=== PATIENT | female | born 1960 | race Caucasian/White ===

== ENCOUNTER 2023-07-15 12:38 | Emergency (ER) | payer OTHER, SELFPAY ==
[2023-07-15 12:46] VITALS: BP 126/81
[2023-07-15 13:06] LABS: % Basophils 0.2 % (0-2); % Eosinophils 0.7 % (0-6); % Immature Granulocytes 0.3 % (0-0.5); % Lymphocytes 19.9 % (20.5-51.1); % Monocytes 6.4 % (1.7-9.3); % Neutrophils 72.5 % (42.2-75.2); Absolute Lymphocytes 1.2 10^3/uL (1.2-3.4); Absolute Monocytes 0.4 10^3/uL (0.1-0.6); Absolute Neutrophils 4.2 10^3/uL (1.4-6.5); Hematocrit 38.1 % (37.0-47.0); Hemoglobin 12.7 g/dL (12.0-16.0); Mean Corp Hgb Conc. 33.3 g/dL (33.0-37.0); Mean Corpuscular Hgb 31.2 pg (27.0-31.0); Mean Corpuscular Volume 93.6 fL (81.0-99.0); Mean Platelet Volume 10.7 fL (7.4-10.4); Nucleated Red Blood Cells % 0 %; Platelet Count 195 10^3/uL (130-400); Red Blood Cell Count 4.07 10^6/uL (4.20-5.40); Red Cell Dist. Width 11.5 % (11.5-14.5); White Blood Cell Count 5.8 10^3/uL (4.8-10.8)
[2023-07-15 13:20] LABS: ALT (SGPT) 24 U/L (0-35); AST (SGOT) 32 U/L (14-36); Albumin 4.6 g/dl (3.5-5.0); Alkaline Phosphatase 84 U/L (38-126); Blood Urea Nitrogen 21 mg/dl (7-17); Calcium 9.9 mg/dl (8.4-10.2); Carbon Dioxide 31 mmol/L (22-30); Chloride 102 mmol/L (98-107); Glucose 107 mg/dl (70-99); Potassium 4.6 mmol/L (3.5-5.1); Sodium 136 mmol/L (135-145); Total Bilirubin 0.6 mg/dl (0.2-1.3); Total Protein 7.6 g/dl (6.3-8.2); eGFR > 60.00
[2023-07-15 13:31] LABS: Troponin I < 0.012 ng/ml
[2023-07-15 13:59] VITALS: BMI 31.9
--- NOTE | 2023-07-15 14:23 | ED.GENMED ---
History of Present Illness
General
Chief Complaint: Chest Pain
Time Seen by Provider: 07/15/23 14:04
Travel History
Have you had any contact with someone who has COVID-19?: No
Do you have any symptoms of coronavirus? Fever > 100 degrees, chills, cough, shortness of breath, sore throat, loss of taste or smell, muscle aches, or headache?: No
History of Present Illness
History of Present Illness:
63-year-old female presents to the emergency department for evaluation of recurrent anxiety. She is was seen this emergency department [facility] times over the past month for similar symptoms. She reports chest pain and shortness of breath which is
similar to her past episodes of anxiety. She is not able to sleep last night. She notes that her psychiatrist has been adjusting medications frequently over the past several months, however had discontinued her clonazepam recently and she feels
this is necessary to take. She is quite hopeful that we will give her clonazepam today. Denies any suicidal or homicidal ideation
Past History
Past History
ED Past Medical History: HTN, Psychiatric (Anxiety, ADHD) and Other (Anxiety panic disorder ); Negative Arrthythmia, CAD or Fibromyalgia
ED Past Surgical History: Appendectomy, Cholecystectomy and
Social History
Tobacco: Non-smoker
Alcohol: Occasional
Drug: None
Personal:
Living: with family
Employment: Employed
Family History
Family History: Other (Nonsig.)
Review of Systems
Review of Systems
Allergies reviewed?: Yes
All Other Systems: ROS reviewed and negative except as documented in HPI and ROS
Phy Exam
Physical Exam
Physical Exam:
GEN: Well appearing, NAD, WDWN
HEENT: Oral mucosa moist, no scleral icterus
Cardiac: Regular rate
Lung: No respiratory distress, no tachypnea
MSK: No gross deformity or injuries
Skin: Good color, no pallor or jaundice, no rashes
Neuro: AO x3, moves all extremities freely
Psych: Tearful and anxious but cooperative
Scores
Heart Score for Chest Pain Patients
STEMI patient?: No
History: Slightly or Non-Suspicious
ECG: Normal
Age: >45 - <65 years
Risk Factors: 1 or 2 Risk Factors
Troponin: </= Normal Limit
Heart Score for Chest Pain Patients: 2
Heart Score Risk: 2.5% MACE over next 6 weeks
Course
Orders/Labs/Results
Orders:
Orders
07/15/23 12:48
Electrocardiogram (*1) Urgent
Reason for Study: Chest Pain
EKG- Treatment ONCE
07/15/23 12:57
Complete Blood Count/With Diff Urgent
Comprehensive Metabolic Panel Urgent
Troponin I Urgent
07/15/23 14:18
HydrOXYzine [Vistaril] 50 mg IM NOW STA
Abnormal Lab Results
07/15/23
12:57
RBC 4.07 L 10^6/uL
(4.20-5.40)
MCH 31.2 H pg
(27.0-31.0)
MPV 10.7 H fL
(7.4-10.4)
Lymphocytes % 19.9 L %
(20.5-51.1)
Carbon Dioxide 31 H mmol/L
(22-30)
BUN 21 H mg/dl
(7-17)
Glucose 107 H mg/dl
(70-99)
07/15/23 12:57
07/15/23 12:57
Vital Signs
Initial and Last Documented VS:
Initial Vital Signs
Temp Pulse Resp BP Pulse Ox
98.1 F 63 18 126/81 97
07/15/23 12:46 07/15/23 12:46 07/15/23 12:46 07/15/23 12:46 07/15/23 12:46
Last Documented Vital Signs
Temp Pulse Resp BP Pulse Ox
98.5 F 86 16 136/71 99
07/15/23 15:08 07/15/23 15:08 07/15/23 15:08 07/15/23 15:08 07/15/23 15:08
MDM/Problems Addressed
MDM/Problems Addressed:
Patient's anxiety symptoms dramatically improved after IM hydroxyzine, will provide this for short-term relief, encourage close follow-up with psychiatry
Comment
Comment:
EKG independently interpreted by me shows normal sinus rhythm at a rate of 61, no ST changes concerning for ischemia, QTc of 416.
*Critical Care Note
Total Time (30-74mins, 75-104mins- exclusive of procedures): Not Applicable
ED Attending Note
-
Portions of this chart may have been created with voice recognition software.� Occasional wrong word or��sound alike� substitutions may have occurred due to the inherent limitations of voice recognition software.
Discharge Plan
Departure
Patient Disposition: Home (Routine Discharge)
Date of Disposition: 07/15/23
Time of Disposition: 15:02
Patient with high blood pressure during this ER visit?: No
Discharge Problem:
Anxiety
Instructions: Anxiety, Adult (DC)
Prescriptions:
New
hydroxyzine HCl 25 mg tablet
25 - 50 mg PO TID PRN (Reason: anxiety) Qty: 20 0RF
No Action
clonidine HCl 0.1 mg Tablet
0.05 mg PO DAILY PRN (Reason: anxiety)
gabapentin 100 mg Capsule
100 mg PO BID
sertraline 50 mg Tablet
50 mg PO DAILY
Referrals:
Ashley Millan DO [Family Provider] -
Interventions
Interventions:
*Risk Screen - Suicide Last Done: 07/15/23 12:46
*General Assessment Last Done: 07/15/23 13:59
*Neglect/Abuse Screening Last Done: 07/15/23 12:46
ED- Fall Risk Assessment Last Done: 07/15/23 13:59
*ED COVID-19 Vaccine History Last Done: 07/15/23 12:46
*Nursing Disposition Last Done: 07/15/23 15:08
ED- Cardiac Assessment Last Done: 07/15/23 13:59
Discharge Date and Time
Discharge Date/Time: 07/15/23 15:09
[2023-07-15] MEDS: VISTARIL 50 MG IM (14:31)
[2023-07-15 15:08] VITALS: BP 136/71
== END 2023-07-15 15:09 | disposition home or self-care (01) ==
LOC: EMR 12:38
PROVIDERS: Emergency Medicine; EMERGENCY PHYSICIAN Emergency Medicine; FAMILY PHYSICIAN Internal Medicine
DX: F41.9 Anxiety disorder, unspecified (principal)
CPT/HCPCS: 99284; 96372; 80053; 84484; 85025; 93005

== ENCOUNTER 2023-08-18 20:52 | Emergency (ER) | payer OTHER, SELFPAY ==
[2023-08-18 20:58] VITALS: BP 119/84
--- NOTE | 2023-08-18 22:35 | ED.GENMED ---
History of Present Illness
General
Chief Complaint: Prescription Refill
Source: patient
Exam Limitations: none
Time Seen by Provider: 08/18/23 22:28
Nursing documentation reviewed up to this point in time: agreed with
Travel History
Have you had any contact with someone who has COVID-19?: No
Do you have any symptoms of coronavirus? Fever > 100 degrees, chills, cough, shortness of breath, sore throat, loss of taste or smell, muscle aches, or headache?: No
History of Present Illness
History of Present Illness:
Pleasant 63-year-old female who presents for prescription refill. She states that she has severe anxiety and is seen by her psychiatrist. She normally takes mirtazapine, but states when she went to the pharmacy, the pharmacist stated that she did
not have a prescription. She has been unable to sleep. Pharmacy printed out a prescription list which states that she had the mirtazapine filled on 08/14/2023. Patient insists that the prescription is un filled due to lack of prescription.
Patient denies anxiety at this point. Denies suicidal homicidal ideation, intent, or plan.
Past History
Past History
ED Past Medical History: HTN, Psychiatric (Anxiety, ADHD) and Other (Anxiety panic disorder ); Negative Arrthythmia, CAD or Fibromyalgia
ED Past Surgical History: Appendectomy, Cholecystectomy and
Social History
Tobacco: Non-smoker
Alcohol: Occasional
Drug: None
Personal:
Living: with family
Employment: Employed
Family History
Family History: Other (Nonsig.)
Review of Systems
Review of Systems
Allergies reviewed?: Yes
All Other Systems: ROS reviewed and negative except as documented in HPI and ROS
Constitutional: Reports no symptoms
EENT: Reports no symptoms
Respiratory: Reports no symptoms
Cardiac: Reports no symptoms
ABD/GI: Reports no symptoms
: Reports no symptoms
Musculoskeletal: Reports no symptoms
Skin: Reports no symptoms
Neurological: Reports no symptoms
Endocrine: Reports no symptoms
Hematologic/Lymphatic: Reports no symptoms
Psychiatric: Reports no symptoms
Phy Exam
General Physical Exam
General Presentation: well appearing
General age: appears stated age
General Skin: warm
General Hydration: appears well hydrated
Cardiovascular Exam
Cardiovascular Exam: regular rate/rhythm
Pulmonary Exam
Pulmonary Exam: lungs clear and no respiratory distress
Neurological Exam
Neurological Exam: alert and oriented x3
Skin Exam
Skin Exam: normal color and warm/dry
Psychiatric Exam
Psychiatric Exam: normal mood/affect and anxious
Course
Vital Signs
Initial and Last Documented VS:
Initial Vital Signs
Temp Pulse Resp BP Pulse Ox
97.9 F 70 18 119/84 98
08/18/23 20:58 08/18/23 20:58 08/18/23 20:58 08/18/23 20:58 08/18/23 20:58
Last Documented Vital Signs
Temp Pulse Resp BP Pulse Ox
97.9 F 70 18 119/84 98
08/18/23 20:58 08/18/23 20:58 08/18/23 20:58 08/18/23 20:58 08/18/23 20:58
*Critical Care Note
Total Time (30-74mins, 75-104mins- exclusive of procedures): Not Applicable
Update Note
Update Note:
Patient states that she did not fill the mirtazapine due to lack of her prescription. I will provide her with 6-day supply she is due to see her psychiatrist on Thursday.
ED Attending Note
-
Portions of this chart may have been created with voice recognition software.� Occasional wrong word or��sound alike� substitutions may have occurred due to the inherent limitations of voice recognition software.
Discharge Plan
Departure
Patient Disposition: Home (Routine Discharge)
Date of Disposition: 08/18/23
Time of Disposition: 22:46
Patient with high blood pressure during this ER visit?: No
Condition: Good
Discharge Problem:
Prescription refill
Instructions: How to Read a Prescription Drug Label
Prescriptions:
New
mirtazapine 15 mg tablet
15 mg PO DAILY Qty: 6 0RF
No Action
clonidine HCl 0.1 mg Tablet
0.05 mg PO DAILY PRN (Reason: anxiety)
gabapentin 100 mg Capsule
100 mg PO BID
sertraline 50 mg Tablet
50 mg PO DAILY
hydroxyzine HCl 25 mg tablet
25 - 50 mg PO TID PRN (Reason: anxiety) Qty: 20 0RF
Referrals:
Ashley Millan DO [Family Provider] -
Activity Restrictions/Additional Instructions:
Please keep with your psychiatrist scheduled for this Thursday.
It was a pleasure meeting you and taking part in your care. We hope for your continued healing and wellness.
Please read discharge instructions in their entirety. However, they are for general education and may not describe your exact diagnosis at discharge. Information on your ER visit and medical conditions were discussed with you along with appropriate
follow up information...
If indicated, please take your medications as instructed and indicated on discharge paperwork.
Please schedule a follow up appointment as directed. Call to schedule an appointment
Please return to the emergency department with ANY change in, persisting, or worsening of symptoms. If any of your symptoms do not improve, or persist, or become more severe within 6-12 hours, please return to the emergency department for further
care.
Please return to the emergency department if you develop a headache, neck pain/stiffness, fever greater than 100.4F, chest pain, shortness of breath, persistent nausea, vomiting, slurred speech, difficulty walking, numbness/tingling, weakness, signs
of infection or any other symptoms that are worrisome to you.
If you have any questions or concerns please do not hesitate to call the Hospital at .
Interventions
Interventions:
*Risk Screen - Suicide Last Done: 08/18/23 21:57
*General Assessment Last Done: 08/18/23 20:58
*Neglect/Abuse Screening Last Done: 08/18/23 21:57
ED- Fall Risk Assessment Last Done: 08/18/23 20:58
*ED COVID-19 Vaccine History Last Done: 08/18/23 20:58
*Nursing Disposition Last Done: 08/18/23 23:01
Discharge Date and Time
Discharge Date/Time: 08/18/23 23:02
== END 2023-08-18 23:02 | disposition home or self-care (01) ==
LOC: EMR 20:52
PROVIDERS: EMERGENCY PHYSICIAN Student in an Organized Health Care Education/Training Program; FAMILY PHYSICIAN Internal Medicine
DX: Z76.0 Encounter for issue of repeat prescription (principal); F41.9 Anxiety disorder, unspecified
CPT/HCPCS: 99281

== ENCOUNTER → 2023-09-10 11:33 | Outpatient (REF) | payer OTHER, SELFPAY | LOC: HWWDC 11:33 | PROVIDERS: ATTENDING PHYSICIAN Internal Medicine | DX: Z12.31 Encounter for screening mammogram for malignant neoplasm of breast (principal) | CPT/HCPCS: 77063; 77067 ==

== ENCOUNTER → 2023-10-23 16:07 | Outpatient (REF) | payer OTHER, SELFPAY | LOC: HWRCS 16:07 | PROVIDERS: ATTENDING PHYSICIAN Internal Medicine | DX: E66.01 Morbid (severe) obesity due to excess calories (principal); Z68.36 Body mass index [BMI] 36.0-36.9, adult; R06.09 Other forms of dyspnea; R01.1 Cardiac murmur, unspecified | CPT/HCPCS: 93306 ==

== ENCOUNTER → 2024-04-25 12:56 | Outpatient (REF) | payer OTHER, SELFPAY | LOC: HWRAD 12:56 | PROVIDERS: ATTENDING PHYSICIAN Internal Medicine | DX: R06.02 Shortness of breath (principal) | CPT/HCPCS: 71046 ==

== ENCOUNTER 2024-09-30 13:31 | Inpatient (IN) | payer OTHER, SELFPAY ==
[2024-09-30] VITALS (31 sets, daily range): BP systolic 88–149; BP diastolic 71–105; BMI 31.8
[2024-09-30 11:12] LABS: % Basophils 0.3 % (0-2); % Eosinophils 0.5 % (0-6); % Immature Granulocytes 0.3 % (0-0.5); % Lymphocytes 13.3 % (20.5-51.1); % Monocytes 5.2 % (1.7-9.3); % Neutrophils 80.4 % (42.2-75.2); Absolute Eosinophils 0.1 10^3/uL (0-0.7); Absolute Lymphocytes 1.4 10^3/uL (1.2-3.4); Absolute Monocytes 0.6 10^3/uL (0.1-0.6); Absolute Neutrophils 8.6 10^3/uL (1.4-6.5); Hematocrit 42.7 % (37.0-47.0); Hemoglobin 14.4 g/dL (12.0-16.0); Mean Corp Hgb Conc. 33.7 g/dL (33.0-37.0); Mean Corpuscular Hgb 28.6 pg (27.0-31.0); Mean Corpuscular Volume 84.7 fL (81.0-99.0); Mean Platelet Volume 9.7 fL (7.4-10.4); Nucleated Red Blood Cells % 0 %; Platelet Count 186 10^3/uL (130-400); Red Blood Cell Count 5.04 10^6/uL (4.20-5.40); Red Cell Dist. Width 12.4 % (11.5-14.5); White Blood Cell Count 10.7 10^3/uL (4.8-10.8)
[2024-09-30 11:23] LABS: ALT (SGPT) 75 U/L (0-35); AST (SGOT) 87 U/L (14-36); Albumin 4.5 g/dl (3.5-5.0); Alkaline Phosphatase 104 U/L (38-126); Blood Urea Nitrogen 26 mg/dl (7-17); Calcium 9.7 mg/dl (8.4-10.2); Carbon Dioxide 26 mmol/L (22-30); Chloride 108 mmol/L (98-107); Glucose 134 mg/dl (70-99); Potassium 4.3 mmol/L (3.5-5.1); Sodium 142 mmol/L (135-145); Total Bilirubin 0.9 mg/dl (0.2-1.3); Total Protein 7.2 g/dl (6.3-8.2); eGFR > 60.00
--- NOTE | 2024-09-30 11:29 | ED.GENMED ---
History of Present Illness
General
Chief Complaint: Breathing Problem
Source: patient and records (Reviewed external records from urgent care)
Exam Limitations: none
Time Seen by Provider: 09/30/24 11:17
Nursing documentation reviewed up to this point in time: agreed with
History of Present Illness
History of Present Illness:
64-year-old female with history as noted presents to the ER from urgent care facility for evaluation of shortness of breath and hypoxia. Patient reports onset of symptoms this morning when she woke up and have been constant throughout the day. She
reports mild associated cough. Denies any significant URI symptoms otherwise such as sore throat or rhinorrhea. She denies any fevers or chills. She denies any chest pain. She denies any swelling or pain in the legs. She has not had any GI
symptoms. She says she has had similar symptoms in the past but cannot tell me exactly what from�chart review shows multiple previous visits for anxiety/panic. She denies any cardiac history. She denies any known lung disease but review of her
medication list shows that she is on standing nebulizer treatments suggesting some underlying lung disease. Per documentation from urgent care she was noted to be hypoxic at 81% there on room air and was sent to the ER for assessment. She denies
any prior oxygen requirement.
Past History
Past History
ED Past Medical History: HTN, Psychiatric (Anxiety, ADHD) and Other (Anxiety panic disorder ); Negative Arrthythmia, CAD or Fibromyalgia
ED Past Surgical History: Appendectomy, Cholecystectomy and
Social History
Tobacco: Non-smoker
Alcohol: Occasional
Drug: None
Personal:
Living: with family
Employment: Employed
Family History
Family History: Other (Nonsig.)
Review of Systems
Review of Systems
All Other Systems: ROS reviewed and negative except as documented in HPI and ROS
Constitutional: Denies fever or chills
Respiratory: Reports cough and trouble breathing
Cardiac: Denies chest pain or palpitations
ABD/GI: Denies abdominal pain, nausea, vomiting or diarrhea
: Denies flank pain
Musculoskeletal: Denies edema
Neurological: Denies dizzy or headache
Phy Exam
Physical Exam
Physical Exam:
General: Awake, alert, oriented x3; no acute distress
Head: Normocephalic, atraumatic
Eyes: Conjunctiva normal, EOMI
Throat: Airway intact, handling secretions
Neck: Trachea midline, no JVD
Lungs: Hypoxic requiring 4 L nasal cannula; respiratory rate 20-22; she is breathing comfortably does not appear to be in respiratory distress; lungs are clear to auscultation bilaterally, no wheezing, rales, rhonchi
Heart: Tachycardia with regular rhythm, systolic murmur noted
Abd: Soft, non distended, nontender
Neuro: No gross deficits
Extremities: No edema in extremities, equal pulses in all extremities
Scores
Heart Failure Risk
Heart Failure Risk Score: Not Applicable
Heart Score for Chest Pain Patients
STEMI patient?: Not applicable
Withdrawal Assessment of Alcohol
Withdrawal Assessment Completed?: Not applicable
Course
Orders/Labs/Results
Orders:
Orders
09/30/24 11:04
CR Chest - 2 Views Urgent
Comment:
Reason For Exam: SOB
09/30/24 11:05
Complete Blood Count/With Diff Urgent
Comprehensive Metabolic Panel Urgent
NT-proBNP Urgent
Troponin I Urgent
09/30/24 11:34
Electrocardiogram (*1) Urgent
Reason for Study: Shortness of Breath
EKG- Treatment ONCE
09/30/24 11:37
CT Chest PE Study Urgent
Comment:
Reason For Exam: sob, hypoxia
Abnormal Lab Results
09/30/24
11:05
Absolute Neuts (auto) 8.6 H 10^3/uL
(1.4-6.5)
Neutrophils % 80.4 H %
(42.2-75.2)
Lymphocytes % 13.3 L %
(20.5-51.1)
Chloride 108 H mmol/L
(98-107)
BUN 26 H mg/dl
(7-17)
Glucose 134 H mg/dl
(70-99)
AST 87 H U/L
(14-36)
ALT 75 H U/L
(0-35)
Troponin I 0.223 H* ng/ml
09/30/24 11:05
09/30/24 11:05
Vital Signs
Initial and Last Documented VS:
Initial Vital Signs
Temp Pulse Resp
36.8 C 110 20
09/30/24 11:00 09/30/24 11:00 09/30/24 11:00
Last Documented Vital Signs
Temp Pulse Resp BP Pulse Ox
36.8 C 101 25 132/96 99
09/30/24 11:00 09/30/24 12:00 09/30/24 11:45 09/30/24 12:00 09/30/24 12:00
MDM/Problems Addressed
Differential Diagnosis Includes:
Pneumonia, pneumothorax, bronchitis, PE, CHF
MDM/Problems Addressed:
64-year-old female presents for evaluation of shortness of breath and hypoxia she says symptoms started this morning and have been constant. She is on 4 L nasal cannula here to maintain saturations. She is tachycardic. Respiratory rate high side
of normal at roughly 20. Blood pressure marginally elevated. Afebrile. Physical exam is as noted�notably her lungs sound clear without focal wheezing or rales. Will plan to place an IV check labs including a CBC and a CMP, troponin, proBNP.
Will check chest x-ray and EKG. If chest x-ray nondiagnostic plan to proceed with CT chest to rule out PE. Will monitor closely reassess after the above.
Initial labs reviewed: CBC unremarkable, CMP shows marginally elevated transaminases unlikely of acute clinical significance. Her proBNP is marginal but troponin was significantly elevated at 0.223. Denies chest pain, no STEMI on EKG. Will need
to trend. Chest x-ray pending but suspect will need CT to rule out PE at this point.
Chest x-ray reviewed by me shows no acute disease. Patient sent directly for CT chest. Reviewed by me in real-time appears to show bilateral PE. Discussed with radiologist to expedite read.
CTA positive for bilateral PE with some signs of right heart strain. PERT alert activated. Initiated heparin infusion. Discussed case with pulmonology and interventional radiology. Plan for catheter directed lysis and ICU admission. Discussed
case with hospitalist for admission.
*EKG
Interpreted by ED Provider?: Yes
Heart Rate: 102
Rate: tachycardiac
Rhythm: sinus
[place]: normal axis
Interval: normal interval
QRS Pattern: normal QRS
Ischemia: non-specific ST changes
*Critical Care Note
Total Time (30-74mins, 75-104mins- exclusive of procedures): 34
comment:
Critical care statement: A total of 34 minutes of critical care time was provided for this patient. This includes management of unstable vital signs, evaluation of the patient at bedside, frequent reassessment, discussion with
consultants/hospitalist, and review of pertinent medical records. This time was separate from time utilized to perform any aforementioned documented procedures
Data Reviewed
Review of Other/Old Records Reveals: Labs and Records
Source: patient and records
Patient Management
Discussion with other providers: Hospitalist (Discussed with hospitalist), Internal Communications Manager (Discussed with hockey instructor, interventional radiologist) and Radiologist (Discussed with radiologist)
Escalation/DeEscalation of care consider admission/obs:
Admission indicated
ED Attending Note
-
Portions of this chart may have been created with voice recognition software.� Occasional wrong word or��sound alike� substitutions may have occurred due to the inherent limitations of voice recognition software.
Discharge Plan
Departure
Patient Disposition: Admit
Date of Disposition: 09/30/24
Time of Disposition: 12:23
Admit to doctor: G[facility]
Presentation/result/management discussed w/ accepting MD/DO: Hospitalist
Discharge Problem:
Acute hypoxic respiratory failure, Pulmonary embolism
Prescriptions:
No Action
clonidine HCl 0.1 mg Tablet
0.05 mg PO DAILY PRN (Reason: anxiety)
gabapentin 100 mg Capsule
100 mg PO BID
sertraline 50 mg Tablet
50 mg PO DAILY
hydroxyzine HCl 25 mg tablet
25 - 50 mg PO TID PRN (Reason: anxiety) Qty: 20 0RF
mirtazapine 15 mg tablet
15 mg PO DAILY Qty: 6 0RF
Referrals:
Ashley Millan DO [Family Provider] -
Interventions
Interventions:
*General Assessment Last Done: 09/30/24 11:00
ED- Cardiac Assessment Last Done: 09/30/24 11:05
ED- Pulmonary Assessment Last Done: 09/30/24 11:05
Discharge Date and Time
Print Language: ESTONIAN
[2024-09-30 11:37] LABS: NT-proBNP 252 pg/ml; Troponin I 0.223 ng/ml
--- NOTE | 2024-09-30 12:41 | HPS.HSE ---
Family Physician
-
Family Physician: Ashley Millan DO
Chief Complaint
-
Shortness of Breath
History of Present Illness
Patient is a 64 y/o female past medical history of COPD and anxiety / panic disorder who presents with shortness of breath. Patient reports she has been short of breath for several months, but today the shortness of breath was much worse than
usual. initially took patient to the urgent care who found her to hypoxic with O2 sat of 81% on RA and she was promptly brought to the emergency department for evaluation. Work-up in the emergency department revealed extensive bilateral
pulmonary emboli with evidence of right heart strain. Patient denies any chest pains or lower extremity edema. She denies any prior history of blood clot, recent travel or recent surgery.
Medical History
Past Medical History
Past Medical History: Reports Other
Additional Past Medical History:
COPD
Generalized Anxiety Disorder / Panic Disorder
Hyperlipidemia
Past Surgical History: Reports Other
Additional Past Surgical History:
Appendectomy
Cholecystectomy
Right Knee Replacement
Social History
Tobacco: Former Smoker (Quit about 30 years ago)
Alcohol: Daily (2 vodka cocktails nights)
Family History
Family History: Other (Patient denies any family history of blood clots)
Allergies / Home Medications
Allergies reflects when Allergies were last updated in [employer].
Home Medications with original date entered in [employer]
Allergy/Medication List:
Allergies
Allergy/AdvReac Type Severity Reaction Status Date / Time
erythromycin base Allergy Unknown Verified 09/30/24 11:00
[Erythromycin Base]
Home Medications
sertraline 50 mg tablet 50 mg PO QPM 07/15/23
albuterol sulfate 90 mcg/actuation aerosol inhaler 2 puff inhalation R Q4HPRN PRN sob/wheezing 09/30/24
budesonide-formoterol HFA 160 mcg-4.5 mcg/actuation aerosol inhaler (Symbicort) 1 inh inhalation R QPM 09/30/24
bupropion HCl 300 mg 24 hr tablet, extended release 300 mg PO QPM 09/30/24
clonazepam 0.5 mg tablet 0.5 mg PO TID 09/30/24
dextroamphetamine-amphetamine 10 mg tablet 10 mg PO BID 09/30/24
hydroxyzine HCl 25 mg tablet 25 - 50 mg PO TIDPRN PRN anxiety 09/30/24
ipratropium 0.5 mg-albuterol 3 mg (2.5 mg base)/3 mL nebulization soln 3 ml inhalation Q4HPRN PRN SOB/WHEEZING 09/30/24
rosuvastatin 5 mg tablet 5 mg PO QPM 09/30/24
trazodone 50 mg tablet 50 - 100 mg PO HS 09/30/24
Review of Systems
-
A 12 point ROS was completed and negative except as noted: Yes
Constitutional: Denies Fever or Chills
Respiratory: Reports Trouble Breathing; Denies Cough
Cardiac: Denies Chest Pain or Palpitations
Physical Exam
Vital Signs
Vital Signs
Temp Pulse Resp BP Pulse Ox
98.3 F 101 25 132/96 99
09/30/24 11:00 09/30/24 12:00 09/30/24 11:45 09/30/24 12:00 09/30/24 12:00
Physical Exam
General: Other (Appears pale and in slight distress)
HEENT: Anicteric and Oxygen (Nasal Cannula)
Respiratory: Clear and Other (Slightly tachypneic without use of accessory muscles)
Cardiac: S1/S2, Tachycardia (Slightly) and Murmur (II/ Systolic Murmur)
GI: Soft and Non Tender
Rectal: Deferred by Provider
Musculoskeletal: No Clubbing, No Cyanosis and No Edema
Skin: Warm and Dry
Neuro: Awake, Alert, Oriented and Nonfocal/grossly intact
Psych: Anxious (Slightly)
Laboratory Results
-
09/30/24 11:05
09/30/24 11:05
Laboratory Results
Total Bilirubin 0.9 mg/dl (0.2-1.3) 09/30/24 11:05
AST 87 U/L (14-36) H 09/30/24 11:05
ALT 75 U/L (0-35) H 09/30/24 11:05
Alkaline Phosphatase 104 U/L (38-126) 09/30/24 11:05
Troponin I 0.223 ng/ml H* 09/30/24 11:05
Data Reviewed
-
CT Scan: Report Reviewed by me
Lab Data: Labs Reviewed by me
Impression/Plan
-
Acute Hypoxic Respiratory Failure secondary Extensive Bilateral Pulmonary Emboli with Right Heart Strain
-PERT alert was called in the emergency department
-Current plan for catheter directed lysis in Interventional Radiology
-Admit to ICU post procedure
-Continue heparin infusion
-Check Echocardiogram
-Consult Pulmonary
Elevated Troponin, likely non-ischemic myocardial injury in setting of pulmonary embolism
-Consult Cardiology
-Trend troponin
COPD, no acute exacerbation
-Continue budesonide nebulizer until respiratory status improves and able to resume Symbicort
-Continue DuoNeb PRN
Generalized Anxiety Disorder / Panic Disorder
-Continue bupropion, clonazepam, sertraline and trazodone
Hyperlipidemia
-Continue Crestor
Code Status: Full Code
--- NOTE | 2024-09-30 12:56 | CON.INTV ---
Consultation
Consultation Request
Date/Time Consultation Requested: 09/30/2024 12:27
Date/Time Consultation Performed: 09/30/2024 12:40
Requesting Provider: Dr. Adrian Nuñez
Performing Provider: Dr. Mimi Gao, Dr. Mcdonald
Reason for Consultation: Acute Hypoxic Respiratory Failure secondary to Pulmonary Embolism
Medical History
-
Chief Complaint: Acute Hypoxic Respiratory Failure secondary to Pulmonary Embolism
History of Present Illness:
64 year old female with a past medical history of hypertension, depression, and anxiety with panic attacks comes to the [facility] from Urgent Care due to recent shortness of breath that began around 8:30 this morning. Patient had been having
trouble breathing for several months prior but this morning was feeling much worse. Her is at her bedside and says that patient's mental acuity has been decreasing for the past few months as she has continued to be short of breath. Patient
has become forgetful and is much altered than before as per her . Due to this increased shortness of breath, she went to the Urgent Care this morning where she was found to be very hypoxic. She was subsequently sent over to the ER for
assessment. In the ED, patient underwent CTA which was positive for bilateral PE with some signs of right heart strain. Patient was started on heparin infusion, and interventional radiology was consulted. Plan by IR is for catheter directed lysis of
the pulmonary embolism with subsequent ICU admission.
Past Medical History
Past Medical History: COPD (Unclear History), HTN, Hypercholesterolemia and Psychiatric (Anxiety and Depression)
Past Surgical History: Appendectomy, Cholecystectomy and
Social History
Tobacco: Former Smoker (30 years ago)
Alcohol: Daily (2 Drinks of Vodka plus others)
Drug: None
Personal:
Living: With Family
Family History
Family History: Reviewed & Not Pertinent
Allergies / Home Medications
Allergies
Allergy/AdvReac Type Severity Reaction Status Date / Time
erythromycin base Allergy Unknown Verified 09/30/24 11:00
[Erythromycin Base]
Home Medications
�Medication �Instructions �Recorded �Confirmed �Last Taken �Type
sertraline 50 mg tablet 50 mg PO QPM 07/15/23 09/30/24 Unknown History
albuterol sulfate 90 mcg/actuation 2 puff inhalation R Q4HPRN PRN 09/30/24 09/30/24 Unknown History
aerosol inhaler sob/wheezing
budesonide-formoterol HFA 160 1 inh inhalation R QPM 09/30/24 09/30/24 Unknown History
mcg-4.5 mcg/actuation aerosol
inhaler (Symbicort)
bupropion HCl 300 mg 24 hr tablet, 300 mg PO QPM 09/30/24 09/30/24 Unknown History
extended release
clonazepam 0.5 mg tablet 0.5 mg PO TID 09/30/24 09/30/24 09/30/24 History
dextroamphetamine-amphetamine 10 10 mg PO BID 09/30/24 09/30/24 Unknown History
mg tablet
hydroxyzine HCl 25 mg tablet 25 - 50 mg PO TIDPRN PRN anxiety 09/30/24 09/30/24 Unknown History
ipratropium 0.5 mg-albuterol 3 mg 3 ml inhalation Q4HPRN PRN 09/30/24 09/30/24 Unknown History
(2.5 mg base)/3 mL nebulization SOB/WHEEZING
soln
rosuvastatin 5 mg tablet 5 mg PO QPM 09/30/24 09/30/24 Unknown History
trazodone 50 mg tablet 50 - 100 mg PO HS 09/30/24 09/30/24 Unknown History
Review of Systems
-
History Source: Patient and Family
Constitutional: Fatigue
EENT: No Symptoms
Respiratory: Trouble Breathing
Cardiac: No Symptoms
Abdomen/GI: Constipated
: No Symptoms
Musculoskeletal: No Symptoms
Skin: No Symptoms
Neuro: No Symptoms
Endocrine: No Symptoms
Hematologic/Lymphatic: No Symptoms
Vitals / Labs / Diagnostic Testing
Vital Signs
Temp Pulse Resp BP Pulse Ox
98.3 F 101 25 132/96 99
09/30/24 11:00 09/30/24 12:00 09/30/24 11:45 09/30/24 12:00 09/30/24 12:00
Lab Data
09/30/24 11:05
09/30/24 11:05
Diagnostic Testing:
Physical Exam
-
HEENT: Normocephalic and Anicteric
Cardiovascular: S1/S2, Regular Rhythm and Other (Tachycardia)
Respiratory: Clear and Non-Labored Respirations
GI: Soft, Distended, Non Tender and Normal Bowel Sounds
Neurology: Awake, Alert and Oriented
Skin: Warm
General: Respiratory Distress and Other (Pale appearing)
Assessment
-
Assessment:
64 year old female with a past medical history of COPD, hypertension, anxiety and depression comes to the ED due to recent hypoxia, was found to have a bilateral PE and will now undergo directed lysis of the pulmonary embolism with subsequent ICU
admission.
Acute hypoxic respiratory failure secondary to bilateral pulmonary embolism
Conditions Present Prior to Admission:
COPD
Hypertension
Hyperlipidemia
Anxiety and Depression
Neuro
-Patient does not report any worsening pain
-RASS Goal 0
-Altered mental status for the past few months as per may be due to chronic hypoxia from chronic PE burden
-Pain medication with Tylenol as needed
-Anxiety and Depression meds to resume when able (Bupropion, Clonazepam, Sertraline, Trazodone)
-Hold Adderall
-Has history of daily alcohol use with 2 cups of vodka daily plus other drinks, continue to monitor for any signs of withdrawal
Cardiovascular
-EKG showed Sinus Tachycardia most likely secondary to PE
-Troponins elevated, most likely due to non-ischemic myocardial disease
-Cardiology were consulted
-Echo was done in 10/23/2023 which showed no abnormalities
-Repeat Echo
Respiratory
-Continue supplementation with O2
-COPD treatment with budesonide nebulizer -> Symbicort after
-Continue DuoNeb PRN after
-Smoking history -> Quit 30 years ago
-Will undergo directed lysis of the pulmonary embolism as per IR
-Unclear history of COPD, may need outpatient follow up with Pulmonology for PFTs and further workup
GI
-NPO until after procedure
-Distended abdomen for past 6 months
-Not sure if she has been constipated
-No reported pain, nausea, or vomiting, diarrhea
-Colace and anticonstipation medication as needed
Renal
-Creatinine at baseline
-Continue to monitor urine output
-I/Os
ID
-No fever, no suspected infection, no abx indicated
Heme/onc
-On Heparin drip, will be switched to oral anticoagulation after procedure (Most likely Eliquis)
-Will need to determine if PE was provoked/unprovoked
-No family history of blood disorders as per patient
-No recent history of travel
-May have been sedentary
Endocrine
-Mild hyperglycemia (134), may have to use insulin sliding scale
-Will check HbA1c
Diagnostic Imaging:
CR Chest - 2 Views
No radiographic evidence of acute cardiopulmonary abnormality.
CT Chest PE Study
Extensive bilateral pulmonary emboli, detailed above. There is dilatation of the right ventricle suggesting the presence of right heart strain.
Echo 10/23/2023:
Normal left ventricular size, wall thickness and systolic function. No regional
wall motion abnormalities are seen. LV ejection fraction is 60-65% by Galvan's
method of discs. Normal diastolic function.
Normal right ventricular size and function.
No significant valvular disease.
No prior study available for comparison.
Data Reviewed
-
EKG: Report reviewed by me, Discussed with Physician, Discussed with Patient and Discussed with Family
Radiology: Report reviewed by me, Discussed with Physician, Discussed with Nurse, Discussed with Patient and Discussed with Family
CT Scan: Report reviewed by me, Discussed with Physician, Discussed with Nurse, Discussed with Patient and Discussed with Family
Labs: Discussed with Physician, Discussed with Nurse, Discussed with Patient and Discussed with Family
[2024-09-30] MEDS: HEPARIN 25000 UNITS/250 ML IV (13:07)
[2024-09-30] MEDS: HEPARIN 6800 UNITS IV (13:12)
--- NOTE | 2024-09-30 13:41 | W.PN.UPDATE ---
Update Note
Progress Note Update
This note serves as an addendum to the H&P by hazmat truck driver SANDIP
Christy DIETERICK
HPI
64F former smoker HX COPD, Daily ETOH( 2 vodka cocktails per night) use, No prior HX PE or DVT, recently less ambulatory for non specif reason, No recent surgery pe SoB. No CP. No palpitation. At [facility] , she was Hypoxic POx 81 % on RA. Seen at ER.
Denied asymmetric Mini edema. No FHX of PE/DVT.
PERT alert was called for Extensive Bilateral Pulmonary Emboli with Right Heart Strain
PmMHX include COPD, Generalized Anxiety Disorder / Panic Disorder, hyperlipidemia
Vital Signs
Temp Pulse Resp BP Pulse Ox
98.3 F 91 20 97/76 94
09/30/24 11:00 09/30/24 13:30 09/30/24 13:30 09/30/24 13:01 09/30/24 13:30
PE
Gen: pale and in slight distress
HEENT: Anicteric and NC O2
Neck: no JVD
Lungs: Slightly tachypneic without use of accessory muscles
Cor: S1/S2, Tachycardia (Slightly) and Murmur (II/ Systolic Murmur)
Abdomen: Soft and Non Tender
SHOE SPRAYER: AAO3, NFND
MS: no edema
Psych: anxious
Data
Abnormal Lab Results
09/30/24
11:05
Absolute Neuts (auto) 8.6 H
Neutrophils % 80.4 H
Lymphocytes % 13.3 L
Chloride 108 H
BUN 26 H
Glucose 134 H
AST 87 H
ALT 75 H
Troponin I 0.223 H*
CT Chest PE Study
1. Extensive bilateral pulmonary emboli, detailed above.
2. There is dilatation of the right ventricle suggesting the presence of right heart strain.
ASSESSMENT & PLAN
Acute Hypoxic RF due to extensive bilateral PE with Right Heart Strain
- Uncertain provoked vs unpropoked PE
-PERT alert was called in the emergency department
-Current plan for catheter directed lysis in Interventional Radiology
-Admit to ICU post procedure
-Continue heparin infusion
-Check Echocardiogram
-Consult Pulmonary
Elevated Troponin, likely non-ischemic myocardial injury in setting of pulmonary embolism
-Consult Cardiology
-Trend troponin
HX COPD, no acute exacerbation
- on INVENTORY TAKER budesonide nebulizer until respiratory status improves and able to resume Symbicort
- on INVENTORY TAKER DuoNeb PRN
Generalized Anxiety Disorder / Panic Disorder
- on INVENTORY TAKER bupropion, clonazepam, sertraline and trazodone
Hyperlipidemia
- on INVENTORY TAKER Crestor
Daily ETOH( 2 vodka cocktails per night) use
- Observe VSS and acute WD syndrome
DVT Px: Heparin gtt
Code: Full
ICU
Total Critical Care Time___55__ minutes. I was immediately available to the patient and staff. I personally examined, reviewed labs, diagnostic images/reports, interpretations, treatment plans, discussed patient care with other providers and
family or caregivers (if patient is unable to make decisions), entered orders as appropriate and documented the medical record.
--- NOTE | 2024-09-30 14:05 | CON.CAR ---
Addendum entered and electronically signed by Jevon Ohara MD 09/30/24 15:13:
Attending addendum: Patient seen and examined. PA note reviewed and findings independently confirmed by me. Patient was seen in the interventional radiology holding area. Briefly, this is a 64-year-old female with a past medical history notable
for anxiety/depression, tobacco abuse, and hyperlipidemia. She reports a 6-month history of exertional dyspnea and sudden onset of acute worsening in symptoms this morning. An echocardiogram was performed followed by cardiology consultation for
possible RV strain. Extensive bilateral pulmonary emboli are noted with suggestion of dilation of the right ventricle on the CT scan. She is now scheduled for catheter directed thrombolysis and troponin measures 0.223 ng/mL.
Physical exam
GEN: Patient is lying flat. No acute distress. Speaking in full sentences. No acute distress
HEENT: NC/AT, sclera are anicteric, hearing and nares are normal. MMM
NECK: Supple. JVP is difficult to assess but does not appear markedly elevate
LUNGS: Clear to bases bilaterally. No wheezing or rhonchi
CV: Regular rate and rhythm. Normal S1/S2. No S3, No S4. Murmur: None
ABD : Soft, NT, ND, No HSM. Bowel sounds are present.
EXT: No CCE
NEURO: No focal neurologic deficits
RECOMMENDATION:
- Planned catheter directed lytic therapy by IR
- Continue O2 to maintain saturations above 90%. Currently on 4 L. She appears comfortable.
- Trend troponin
- I suspect her troponin elevation is secondary to the pulmonary embolism
- Will follow
- Check fasting lipids while here : May intensify lipid lowering therapy
Original Note:
Consultation
Consultation Request
Date/Time Consultation Performed: 09/30/24
Requesting Provider: Ewa Reyes PA-C
Performing Provider: Ariana Coto PA-C for Dr. Ohara
Reason for Consultation: R heart strain by CT
Medical History
-
Chief Complaint: SOB
History of Present Illness:
Patient is a 64-year-old female with past medical history of significant anxiety/depression, hyperlipidemia, former smoking/COPD who presents to [facility] for evaluation of SOB. Patient is a poor historian, and is very repetitive on my interview. She
reports today she had significant SOB resulting in her seeking medical attention. She also relays that she has been very depressed and has been dizzy at times. Denies CP. CTA showed extensive B/L PEs with evidence of R heart strain resulting in
cardiology consultation. Denies cardiac history. Denies calf pain or swelling. Denies recent trauma, surgeries. Denies history of clotting issues in self or family to her knowledge.
PMH:
Anxiety/depression
HLD
COPD
Former smoker
Daily ETOH use
Past Medical History
Past Medical History: Other (in HPI)
Social History
Tobacco: Former Smoker
Alcohol: Daily (2-3 drinks daily with 1 shot of vodka per drink)
Personal:
Living: With Family
Employment: Not Employed
Family History
Family History: Reviewed & Not Pertinent
Allergies / Home Medications
Allergy/AdvReac Type Severity Reaction Status Date / Time
erythromycin base Allergy Unknown Verified 09/30/24 11:00
[Erythromycin Base]
�Medication �Instructions �Recorded �Confirmed �Type
sertraline 50 mg tablet 50 mg PO QPM 07/15/23 09/30/24 History
albuterol sulfate 90 mcg/actuation 2 puff inhalation R Q4HPRN PRN 09/30/24 09/30/24 History
aerosol inhaler sob/wheezing
budesonide-formoterol HFA 160 1 inh inhalation R QPM 09/30/24 09/30/24 History
mcg-4.5 mcg/actuation aerosol
inhaler (Symbicort)
bupropion HCl 300 mg 24 hr tablet, 300 mg PO QPM 09/30/24 09/30/24 History
extended release
clonazepam 0.5 mg tablet 0.5 mg PO TID 09/30/24 09/30/24 History
dextroamphetamine-amphetamine 10 10 mg PO BID 09/30/24 09/30/24 History
mg tablet
hydroxyzine HCl 25 mg tablet 25 - 50 mg PO TIDPRN PRN anxiety 09/30/24 09/30/24 History
ipratropium 0.5 mg-albuterol 3 mg 3 ml inhalation Q4HPRN PRN 09/30/24 09/30/24 History
(2.5 mg base)/3 mL nebulization SOB/WHEEZING
soln
rosuvastatin 5 mg tablet 5 mg PO QPM 09/30/24 09/30/24 History
trazodone 50 mg tablet 50 - 100 mg PO HS 09/30/24 09/30/24 History
Review of Systems
-
History Source: Patient and Family
All other systems: Negative unless noted
Physical Exam
Vital Signs
Temp Pulse Resp BP Pulse Ox
98.3 F 91 20 97/76 94
09/30/24 11:00 09/30/24 13:30 09/30/24 13:30 09/30/24 13:01 09/30/24 13:30
Lab Results
09/30/24 11:05
09/30/24 11:05
Troponin I 0.223 ng/ml H* 09/30/24 11:05
Jnh-G-Znanqwjeoda Pept 252 pg/ml 09/30/24 11:05
Physical Exam
General: No Apparent Distress and Other (on supp O2)
HEENT: Normocephalic, Anicteric and Moist Mucous Membranes
Respiratory: Clear and Non Labored Respirations
Cardiac: S1/S2 and Regular Rhythm
GI: Soft, Non Tender, Non Distended and Normal Bowel Sounds
Musculoskeletal: No Clubbing, No Cyanosis and No Edema
Skin: Warm and Dry
Neuro: Awake and Alert (but repetitive)
Impression / Plan
-
Primary [employer] Manager: none prior to admission
Assessment:
Presentation with SOB
Acute hypoxic respiratory failure
Extensive B/L PE
Evidence of R heart strain by CT imaging
Elevated troponin, suspected nonischemic myocardial injury secondary to above
Transaminitis
Anxiety/depression
HLD
COPD
Former smoker
Daily ETOH use
ECHO 09/30/24: pending
Plan:
-Patient presents with SOB and found by imaging to have extensive B/L PE. PERT alert was called. started on IV heparin, eventual transition to DOAC
-for focal lytic therapy in IR
-continue supp O2, wean as able
-for echo as CT imaging with evidence of R heart strain. continue treatment of PE
-elevated trop, trend to peak. no CP. EKG ST with possible lateral ST depression vs NSSTS. repeat EKG in AM. trop elevation likely secondary to PE rather than ischemic event. could consider eventual OP ischemic evaluation
-d/w hospitalist PA. d/w patient and at bedside. patient's sees Dr. Zavala in office.
Data Reviewed
-
EKG: Tracing Personally Visualized and interpreted
CT Scan: Report Reviewed by me
Labs: Labs Reviewed by me
Old Records: Reviewed
--- NOTE | 2024-09-30 15:36 | W.PN.UPDATE ---
Update Note
Progress Note Update
Submassive PE with right heart strain, tachycardia, and elevated troponin. CT shows saddle component of embolus, but occlusive portion is located further out in the pulmonary artery tree, right greater than left.
Arteriogram performed. PA pressure 33/17, mean 23 mmHg. Left PA arteriogram showed minimal embolus, and relatively preserved parenchymal perfusion.
Right PA arteriogram showed central embolus, with perfusion defect in lower lung zone. Embolus is too far distal for safe embolectomy, therefore decision made to perform tpa thrombolysis.
Pigtail catheter left in right main PA. tPA to run at 1 mg/hr for 6 hours through infusion catheter. After 6 hours, the infusion rate should be decreased to 0.5 mg/hr, which will continue until she returns to IR.
Heparin to run at 800 units/hour through peripheral IV, without titration.
She will return to IR tomorrow morning for followup arteriogram.
[2024-09-30] MEDS: CATHFLO/ACTIVASE 1000 MG INF CATH (15:40)
--- NOTE | 2024-09-30 16:17 | EDRN ---
Received bedside report from Gwendolyn Purcell, attempted to call report to ICU, unable to take report.
--- NOTE | 2024-09-30 16:27 | EDRN ---
Report given to Rae in ICU
[2024-09-30] MEDS: KLONOPIN 0.5 MG PO (16:53)
[2024-09-30] MEDS: WELLBUTRIN XL (24 hour extended release) 300 MG PO (17:52)
[2024-09-30] MEDS: ZOLOFT 50 MG PO (17:52)
[2024-09-30] MEDS: CRESTOR 5 MG PO (17:52)
--- NOTE | 2024-09-30 17:53 | PTCARENOTE ---
Received pt from ED on 4lnc with heparin infusing at 800units/hr peripherally and Alteplase infusing at 100ml/hr via r Femoral sheath. Pt slightly restless upon arrival, frequent reminders to lay still, keep head on pillow, not lift leg. Minor
oozing noted after transferring from stretcher to bed and log rolling for old sheets. CHG done and admission completed.
[2024-09-30 18:39] LABS: Glucose - Point of Care 96 mg/dl (70-99)
--- NOTE | 2024-09-30 18:45 | PTCARENOTE ---
Attempted to draw labs from peripheral site without success. Pt stuck unsuccessfully x2 for ordered labs, report given to next shift and aware of labs needed.
[2024-09-30] MEDS: PULMICORT 0.5 MG INH (19:52)
--- NOTE | 2024-09-30 20:00 | PTCARENOTE ---
Received pt resting in bed, AAOx3. Drowsy at times, drifting off to sleep in between conversations but easily arousable. Restless and anxious at times. Educated many times on keeping legs flat in bed and not shifting around too much in bed. Pt.
expresses understanding but continues to be restless. Requesting trazodone for sleep - will administer. R fem venous sheath in place with alteplase infusing at 100ml/hr. Dsg c/d/i except small amount old drainage from dayshift. Handoff completed
with dayshift RN. Leg immobilizer maintained. NSR on tele, HR 80s. BP 100-110s/70s-80s. Weak DP pulses. AFebrile. On 4L NC. Spo2 95%. Lungs CTA. + bowel sounds. NPO except meds. Purewick in place. Encouraged pt to void when able. Heparin infusing
peripherally via R hand #18. Son and at bedside.
[2024-09-30 20:03] LABS: APTT 65.3 Sec (23.4-35.0)
[2024-09-30] MEDS: DESYREL 50 MG PO (20:23)
[2024-09-30] MEDS: TYLENOL 650 MG PO (20:23)
[2024-09-30 20:26] LABS: Troponin I 0.777 ng/ml
[2024-09-30 20:38] LABS: Fibrinogen 413 MG/DL (199-459); INR 1.01; PT 13.6 Sec (11.4-14.6)
--- NOTE | 2024-09-30 20:41 | PTCARENOTE ---
R groin oozing blood, almost saturating dressing. BUILD AND DEPLOYMENT ENGINEER Ashley to bedside. No changes in assessment otherwise. Vitals stable. PTT was drawn at change of shift - PT/INR and fibrinogen added on now. CBC drawn. New #20 INT placed L AC (previous L AC
fell out). Sand bag applied to R groin per BUILD AND DEPLOYMENT ENGINEER orders. Monitoring closely. Of note, pt. very restless/anxious in bed. C/O low back pain from lying flat. PRN tylenol given and HS trazodone given. Educated multiple times on importance of keeping legs
still and not moving much in bed.
[2024-09-30 20:53] LABS: Hematocrit 40.6 % (37.0-47.0); Hemoglobin 13.9 g/dL (12.0-16.0); Mean Corp Hgb Conc. 34.2 g/dL (33.0-37.0); Mean Corpuscular Hgb 28.9 pg (27.0-31.0); Mean Corpuscular Volume 84.4 fL (81.0-99.0); Mean Platelet Volume 9.6 fL (7.4-10.4); Platelet Count 180 10^3/uL (130-400); Red Blood Cell Count 4.81 10^6/uL (4.20-5.40); Red Cell Dist. Width 12.5 % (11.5-14.5); White Blood Cell Count 7.5 10^3/uL (4.8-10.8)
--- NOTE | 2024-09-30 21:30 | PTCARENOTE ---
Alteplase infusion turned down to 0.5mg/hr (50ml/hr) per orders.
New alteplase order not scanned at 2100 because previous bag still has medication remaining. Will scan new bag when current bag complete.
[2024-09-30] MEDS: VERSED 2 MG IV (22:19)
[2024-09-30] MEDS: KLONOPIN PO (22:19)
--- NOTE | 2024-09-30 22:36 | W.PN.UPDATE ---
Update Note
Progress Note Update
2000 Patient moving leg, resulting in active bleeding from catheter site. Instructed nurse to apply pressure to site. Hemodynamically stable and labs are appropriate.�
0871. Patient actively trying to get out of bed. She is resisting nurse with repositioning given 2 milligrams of Versed. High concern for alcohol withdrawal.� �MSAS protocol initiated.�
--- NOTE | 2024-09-30 22:39 | PTCARENOTE ---
Bed alarm went off- pt found climbing out of bed, sitting at bottom edge of bed. Multiple RNs assisted pt back in bed to lay flat. Pt fighting with staff, argumentative, agitated. WIRE CHIEF to bedside. 2mg versed ordered and given. Pt. now calm. History
of ETOH abuse - placed on MSAS. Will monitor.
R fem sheath remains intact, dsg appears unchanged at this time. Orders from WIRE CHIEF to keep dsg intact for now and will re-evaluate in coming hours to change dsg.
[2024-10-01] VITALS (28 sets, daily range): BP systolic 72–143; BP diastolic 67–115; BMI 32.4
[2024-10-01] MEDS: ATIVAN 1 MG PO (00:08)
[2024-10-01] MEDS: THIAMINE INJECTION 200 MG IV ×3 (00:08→20:24)
[2024-10-01] MEDS: TYLENOL 650 MG PO ×2 (00:38→07:33)
[2024-10-01 00:46] LABS: Troponin I 0.651 ng/ml
[2024-10-01] MEDS: ZOFRAN 4 MG IV (03:37)
[2024-10-01] MEDS: DILAUDID 0.5 MG IV (03:37)
[2024-10-01] MEDS: CATHFLO/ACTIVASE 1000 MG INF CATH (03:49)
[2024-10-01 04:43] LABS: Hemoglobin 12.6 g/dL (12.0-16.0); Mean Corp Hgb Conc. 33.2 g/dL (33.0-37.0); Mean Corpuscular Hgb 28.5 pg (27.0-31.0); Mean Platelet Volume 10.2 fL (7.4-10.4); Platelet Count 166 10^3/uL (130-400); Red Blood Cell Count 4.42 10^6/uL (4.20-5.40); Red Cell Dist. Width 12.5 % (11.5-14.5)
[2024-10-01 04:46] LABS: INR 1.09; PT 14.4 Sec (11.4-14.6)
[2024-10-01 04:47] LABS: APTT 37.7 Sec (23.4-35.0)
[2024-10-01 04:58] LABS: Blood Urea Nitrogen 22 mg/dl (7-17); Calcium 9.2 mg/dl (8.4-10.2); Carbon Dioxide 28 mmol/L (22-30); Chloride 107 mmol/L (98-107); Estimated Creatinine Clearance 70 ml/min; Glucose 117 mg/dl (70-99); Magnesium 1.8 mg/dl (1.6-2.3); Potassium 4.3 mmol/L (3.5-5.1); Sodium 139 mmol/L (135-145); eGFR > 60.00
--- NOTE | 2024-10-01 05:07 | PTCARENOTE ---
R groin dressing taken down and re-dressed. No active bleeding or clots noted. Cleaned around site and applied 4x4s and tegaderms. Alteplase continues to run through sheath. Vascular checks unchanged. Heparin continues via #20 FA at 800units. Pt.
c/o back pain unrelieved by tylenol - SILO OPERATOR notified, dilaudid ordered and given with good effect. MSAS ongoing. Required 1 dose of PO ativan overnight. Pt. more cooperative than prior in the shift. Uses call gage appropriately at times.
[2024-10-01 05:17] LABS: Troponin I 0.439 ng/ml
--- NOTE | 2024-10-01 06:55 | PTCARENOTE ---
Handoff assessment. Pt restless and shifting her hips and attempting to externally rotate her right leg and bend it. She was informed of the importance of keeping that limb straight due to the catheter and the medication infusing through it. She is
forgetful about the instructions but is able to tell me the date, time, month and why she is in the hospital. Bilateral wrist restraints intact. Right femoral thrombolysis catheter with dressing intact & Alteplase infusing via catheter @ 0.5mg/hr.
Small area of old drainage. Right FA#20g protective catheter with Heparin@ 800units/hr. Good peripheral pulse, no edema. Right knee immobilizer to right L/E. Skin assessment benign. Lungs dim in the bases. Pulse ox 97% with 4 liters nasal cannula.
On RA she is 91%. Hypoactive BSX4. Purwick in place. Safe environment maintained. Will continue to monitor. RN remains seated outside pt window within view of her to ensure she is keeping her limb straight.
[2024-10-01] MEDS: FOLVITE 1 MG PO (07:33)
[2024-10-01] MEDS: MAGNESIUM OXIDE 500 MG PO (07:33)
--- NOTE | 2024-10-01 07:36 | W.PN.INTV ---
Today's Communication / Plan
Recommendations
Doing well post lysis, catheter removal today
Remains on IV heparin gtt
MSAS added for w/d symptoms
Tolerating diet, can let OOB today
If doing well, can transfer to floors
Assessment
-
64 year old F with past history of COPD, daily ETOH use, seen here for hypoxemia and SOB. Found to have CTA with bilateral PE and elevated trops suggestive of submassive PE. PERT alert called and currently undergoing catheter directed thrombolysis
with IR. Admitted to ICU 09/30.
Acute hypoxic respiratory failure secondary
Submassive bilateral pulmonary embolism s/p catheter directed lysis 09/29
SOB
Daily drinker
Conditions Present Prior to Admission:
COPD
HTN
Hypercholesterolemia
Anxiety and Depression
Appendectomy
Cholecystectomy
Former Smoker (30 years ago)
Alcohol: Daily (2 Drinks of Vodka plus others)
Plan
Patient does not report any worsening pain
RASS Goal 0
Pain medication with Tylenol as needed
Anxiety and Depression meds to resume when able (Bupropion, Clonazepam, Sertraline, Trazodone)
Hold Adderall
Has history of daily alcohol use with 2 cups of vodka daily plus other drinks, continue to monitor for any signs of withdrawal
MSAS added, PRN
EKG showed Sinus Tachycardia most likely secondary to PE
Troponins elevated, most likely due to non-ischemic myocardial disease
Cardiology were consulted
Echo was done in 10/23/2023 which showed no abnormalities
Repeat ECHO: EF 60%, mildly enlarged right ventricle with reduced systolic function. Dilated right atrium. Moderate tricuspid regurgitation. Estimated pulmonary artery pressure of 43
Continue supplementation with O2
COPD treatment with budesonide nebulizer -> Symbicort after
No prior PFTs for review to confirm, never saw pulmonary
Continue DuoNeb PRN after
Smoking history -> Quit 30 years ago
Will undergo directed lysis of the pulmonary embolism as per IR--catheter removal today 10/01
Unclear history of COPD, may need outpatient follow up with Pulmonology for PFTs and further workup
Diet resumed, tolerating
Distended abdomen for past 6 months, monitor BMs
Colace and anticonstipation medication as needed
Creatinine at baseline
Continue to monitor urine output
Follow I/Os
No fever, no suspected infection, no abx indicated
Observation
On Heparin drip, will be switched to oral anticoagulation after procedure (Most likely Eliquis)
Will need to determine if PE was provoked/unprovoked
No family history of blood disorders as per patient
No recent history of travel
May have been sedentary
Mild hyperglycemia (134), may have to use insulin sliding scale
Check HbA1c
Diagnostic Imaging:
CR Chest - 2 Views: No radiographic evidence of acute cardiopulmonary abnormality.
CT Chest PE Study: Extensive bilateral pulmonary emboli, detailed above. There is dilatation of the right ventricle suggesting the presence of right heart strain.
ECHO 09/30/24-Left ventricle is small in size. Normal left ventricular systolic function and wall thickness. Normal regional wall motion. Left ventricular ejection fraction is 60-65% by Galvan's method of discs. Normal diastolic function. Mildly
enlarged right ventricle with reduced systolic function. Dilated right atrium. Moderate tricuspid regurgitation. Estimated pulmonary artery pressure of 43 mmHg assuming a right atrial pressure of 15 mmHg.
Compared to prior study dated 10/23/2023, dilated and hypokinetic right ventricle, dilated right atrium, moderate tricuspid regurgitation and elevated pulmonary pressures are all new findings.
Echo 10/23/2023: Normal left ventricular size, wall thickness and systolic function. No regional wall motion abnormalities are seen. LV ejection fraction is 60-65% by Galvan's method of discs. Normal diastolic function. Normal right ventricular
size and function. No significant valvular disease. No prior study available for comparison.
Total critical care time 45 mins -- The patient is admitted for acute critical illness for the treatment of vital organ failure and/or prevention of further life-threatening conditions. Total care time includes review of medical dir's
history/presentation, separate physical examination, personal review of medications, hemodynamic parameters, laboratory data/imaging, discussion/coordinating care with house staff, pharmacy, respiratory therapy, room service attendant, nursing and updating
patient's family.
Subjective Dataa
Subjective Data
Date of Service:
Date of Service: October 01, 2024
Chief Complaint: Stock Worker Follow Up
Subjective:
No events ON, w/d symptoms reportedly noted
Added on MSAS
Objective Data
Data Reviewed
Vital Signs / I&O / Oxygen:
Vital Signs
Temp Pulse Resp BP Pulse Ox
98.3 F 76 22 141/115 95
10/01/24 03:33 10/01/24 06:15 10/01/24 06:15 10/01/24 06:00 10/01/24 05:45
Intake and Output
09/30/24 10/01/24 10/02/24
06:59 06:59 06:59
Intake Total 1094 / 1094
Balance 1094 / 1094
SaO2 95
Nasal Cannula flow liters per 4
minute
Physical Exam
General: Comfortable and Other (NAD)
HEENT: Normocephalic, Anicteric and Moist Mucous Membranes
Cardiovascular: S1-S2 and Regular Rhythm
Respiratory: Clear and Non-Labored Respirations
GI: Soft, Non Distended and Non Tender
Neurology: Awake, Alert, Oriented and No Motor Deficits
Skin: Warm, Dry and Good Color
Labs/Micro/Reports
Lab Data
10/01/24 04:16
10/01/24 04:16
Laboratory Results
09/30/24 09/30/24 10/01/24
12:37 19:44 04:16
PT 13.6 14.4
INR 1.01 1.09
APTT 27.0 65.3 H 37.7 H
[2024-10-01] MEDS: PULMICORT 0.5 MG INH ×2 (08:23→20:19)
--- NOTE | 2024-10-01 09:58 | W.PN.UPDATE ---
Update Note
Progress Note Update
Followup pulmonary arteriogram shows much improved embolus burden, and improved parenchymal perfusion. PA pressure 34/17, mean 20 mm Hg.
Lysis catheter and sheath removed. OK to resume therapeutic anticoagulation around noon today.
--- NOTE | 2024-10-01 10:25 | PTCARENOTE ---
Obtained pt from [facility] post procedure. SHe was informed by [facility] staff and reinforced by myself that she is to lay flat and keep her right leg straight until 12nn. She verbalized her understanding. Right femoral bandaid with small area of bloody
drainage, it was marked. Groin soft with good peripheral pulses. Right knee immobilizer removed to assess her skin, then reapplied. Tolerating 4 liters nasal cannula. Hypoactive BSX4. Able to void with purwick. Safe environment maintained. Will
continue to monitor. Right FA #20g protective catheter with Heparin drip @ 800unit/hr continuous rate. Left AC#20g protective catheter flushed and patent. Safe environment maintained.
--- NOTE | 2024-10-01 11:20 | PTCARENOTE ---
Dr. Annalee Koehler at the bedside. We reviewed home meds and informed of her restlessness and c/o back pain in her left upper back. She is forgetful and impulsive. Continued need for bilateral soft wrist restraints. Safe environment maintained. Small
expansion of bloody drainage on her femoral bandaid. No neurovascular changes.
--- NOTE | 2024-10-01 11:21 | W.PN.CARDCBS ---
Today's Communication / Plan
-
Status post bilateral extensive PE and lytic therapy.
Postprocedure pulmonary artery pressures improved.
Anticoagulation per primary service and pulmonary.
Right heart dysfunction noted by echocardiogram reassess echo as an outpatient in 3 months.
Impression / Plan
-
Primary Rubber Tubing Splicer: none prior to admission
Assessment:
Presentation with SOB
Acute hypoxic respiratory failure
Extensive B/L PE
Evidence of R heart strain by CT imaging and echocardiogram
Elevated troponin, suspected nonischemic myocardial injury secondary to right heart injury
Transaminitis
Anxiety/depression
HLD
COPD
Former smoker
Daily ETOH use
ECHO 09/30/24: LVEF 60 to 65%. Normal LV size. Mildly enlarged right ventricle with reduced systolic function. Moderate tricuspid regurgitation. Estimated pulmonary artery pressure of 43 mmHg assuming a right atrial pressure of 15 mmHg.
Plan:
-Patient presents with extensive B/L PE. PERT alert was called. started on IV heparin, eventual transition to DOAC per pulmonary and primary service
-She underwent focal lytic therapy in IR
09/30/24 Arteriogram performed. PA pressure 33/17, mean 23 mmHg
10/01/24 Followup pulmonary arteriogram shows much improved embolus burden, and improved parenchymal perfusion. PA pressure 34/17, mean 20 mm Hg.
-Given right heart dysfunction will need to continue to follow as an outpatient with 3-month echocardiogram discussed with patient. Thankfully mean PA pressure and PA pressures have improved post lytics as noted. Data reviewed.
-continue supp O2, wean as able
-Noted elevated trop consistent with pulmonary embolism and right heart strain. Troponins downtrending today.
- EKG independently reviewed by me normal sinus rhythm and stable.
-Patient's sees Dr. Zavala in office.
Progress Note - Rubber Tubing Splicer
Subjective
Date of Service: October 01, 2024
She is hungry. She denies chest pain and palpitations currently.
Objective
Labs:
10/01/24 04:16
10/01/24 04:16
Labs
Hgb 12.6 g/dL (12.0-16.0) 10/01/24 04:16
Hct 38.0 % (37.0-47.0) 10/01/24 04:16
Plt Count 166 10^3/uL (130-400) 10/01/24 04:16
PT 14.4 Sec (11.4-14.6) 10/01/24 04:16
INR 1.09 10/01/24 04:16
APTT 37.7 Sec (23.4-35.0) H 10/01/24 04:16
Sodium 139 mmol/L (135-145) 10/01/24 04:16
Potassium 4.3 mmol/L (3.5-5.1) 10/01/24 04:16
BUN 22 mg/dl (7-17) H 10/01/24 04:16
Creatinine 0.8 mg/dL (0.6-1.0) 10/01/24 04:16
Glucose 117 mg/dl (70-99) H 10/01/24 04:16
Troponins
09/30/24 09/30/24 10/01/24
11:05 19:44 00:14
Troponin I 0.223 H* 0.777 H* 0.651 H*
10/01/24
04:16
Troponin I 0.439 H* D
Vital Signs and I&O:
Vital Signs
Temp Pulse Resp BP Pulse Ox
97.9 F 72 20 123/76 95
10/01/24 08:19 10/01/24 10:35 10/01/24 10:35 10/01/24 10:35 10/01/24 10:35
Vital Signs
Temp Pulse Resp BP Pulse Ox
97.9 F 72 20 123/76 95
10/01/24 08:19 10/01/24 10:35 10/01/24 10:35 10/01/24 10:35 10/01/24 10:35
Intake & Output
09/29/24 09/30/24 10/01/24 10/02/24
06:59 06:59 06:59 06:59
Intake Total 1094 / 1152 294 / 294
Balance 1094 / 1152 294 / 294
Physical Exam
Physical Exam
General: Well developed, well nourished in NAD.
Heart: Distant heart sounds PMI, RRR, no murmurs, No S3, S4, no rubs.
Lungs: Coarse anterior breath sound
Extremities: Boots in place
Neuro: Grossly nonfocal, awake, alert
[2024-10-01] MEDS: ROXICODONE 5 MG PO (11:27)
[2024-10-01 11:30] LABS: APTT 39.8 Sec (23.4-35.0)
--- NOTE | 2024-10-01 11:31 | PTCARENOTE ---
Pt given menu to look at. Analgesia administered as ordered. She is aware that Dr. Annalee Koehler restarted all of her home medications. She verbalized her understanding.
[2024-10-01] MEDS: ADDERALL PO ×3 (12:44→20:24)
[2024-10-01] MEDS: ATARAX 25 MG PO (12:44)
[2024-10-01 13:11] LABS: Hematocrit 37.3 % (37.0-47.0); Hemoglobin 12.4 g/dL (12.0-16.0); Mean Corp Hgb Conc. 33.2 g/dL (33.0-37.0); Mean Corpuscular Hgb 28.5 pg (27.0-31.0); Mean Corpuscular Volume 85.7 fL (81.0-99.0); Mean Platelet Volume 10.1 fL (7.4-10.4); Platelet Count 162 10^3/uL (130-400); Red Blood Cell Count 4.35 10^6/uL (4.20-5.40); Red Cell Dist. Width 12.4 % (11.5-14.5); White Blood Cell Count 7.9 10^3/uL (4.8-10.8)
[2024-10-01 13:23] LABS: APTT 38.7 Sec (23.4-35.0)
[2024-10-01 13:54] LABS: Glycohemoglobin (HgbA1c) 5.4 % (4.0-5.6)
--- NOTE | 2024-10-01 14:20 | PTCARENOTE ---
Pt's and son verbalized their concern regarding her mental status and confused conversation. Per the she consumed alcohol the night prior to her admission and has been having this confused conversation for approximately a month now.
They were reminded that she was hypoxic at the urgent care 81% pulse ox on RA for an unknown period of time prior to admission. They stated initially they thought it could have been from a combination of her 'pills and drinking'. Dr. Mcdonald notified
of the family's concern regarding her mental status. Head CT ordered. Pt and family updated.
--- NOTE | 2024-10-01 15:24 | W.PN.HOSP.TC ---
Today's Communication/Plan
-
Assessment / Plan
Assessment / Plan
NAD
Scleral Anicteric
DMM
No JVD
CTABL
RRR, S1/S2
Soft, NT, ND, BS+
Warm, Dry
AAOx3
Calm
Acute hypoxemic respiratory failure secondary to extensive bilateral pulmonary emboli with right heart strain
S/p CDT lysis with interventional radiology
10/01 repeat angiogram completed with improvement in clot burden
10/01 CDT sheath was removed
Start IV heparin drip
IR, PUlm and Cards following
Nonischemic myocardial injury secondary to pulmonary embolism
Cardiology following
Right heart strain
Confirmed on 2D echocardiogram
Cardiology following recommend repeat 2D ultrasound in 3 months to assess resolution
Alcohol use disorder
Ativan, thiamine folate MSAS
Generalized Anxiety Disorder / Panic Disorder
Continue bupropion, clonazepam, sertraline and trazodone
Hyperlipidemia
Continue Crestor
Anticipated Discharge: > 48 hours
Subjective/Interval History
-
Date of Service: October 01, 2024
Seen and examined. No new complaints. No acute overnight events.
Objective Data
-
Labs:
Laboratory Results
10/01/24 10/01/24 10/01/24
04:16 11:03 13:02
WBC 8.0 7.9
Hgb 12.6 12.4
Hct 38.0 37.3
Plt Count 166 162
PT 14.4
INR 1.09
APTT 37.7 H 39.8 H 38.7 H
Sodium 139
Potassium 4.3
Chloride 107
Carbon Dioxide 28
BUN 22 H
Creatinine 0.8
Glucose 117 H
Calcium 9.2
10/01/24
19:38
WBC
Hgb
Hct
Plt Count
PT
INR
APTT Pending
Sodium
Potassium
Chloride
Carbon Dioxide
BUN
Creatinine
Glucose
Calcium
Vital Signs:
Vital Signs
Temp Pulse Resp BP Pulse Ox
98.6 F 75 24 108/74 93
10/01/24 12:18 10/01/24 13:30 10/01/24 13:30 10/01/24 13:00 10/01/24 13:30
I&O
09/30/24 10/01/24 10/02/24
06:59 06:59 06:59
Intake Total 1094 / 1152 558 / 558
Balance 1094 / 1152 558 / 558
[2024-10-01] MEDS: HEPARIN 25000 UNITS/250 ML IV (16:45)
[2024-10-01] MEDS: KLONOPIN PO (16:50)
[2024-10-01] MEDS: WELLBUTRIN XL (24 hour extended release) 300 MG PO (18:39)
[2024-10-01] MEDS: ZOLOFT 50 MG PO (18:39)
[2024-10-01] MEDS: CRESTOR 5 MG PO (18:39)
--- NOTE | 2024-10-01 19:30 | PTCARENOTE ---
RN found pt attempting to get to bottom of bed to get to bathroom. pt re-educated on using call gage for assistance. assist x 2 to commode. oriented x 3 but also has confused conversation. MARIKA. SR HR 70s. B/L IV WNL- Heparin gtt infusing per work
list. R groin site WNL. POC discussed, bed alarm on, call gage w/pt.
[2024-10-01 20:45] LABS: APTT 94.1 Sec (23.4-35.0)
[2024-10-01] MEDS: KLONOPIN 0.5 MG PO (23:16)
[2024-10-01] MEDS: DESYREL 50 MG PO (23:16)
[2024-10-02] VITALS (16 sets, daily range): BP systolic 93–124; BP diastolic 59–85; BMI 32.3
[2024-10-02 03:27] LABS: Hematocrit 35.2 % (37.0-47.0); Hemoglobin 11.8 g/dL (12.0-16.0); Mean Corp Hgb Conc. 33.5 g/dL (33.0-37.0); Mean Corpuscular Hgb 28.9 pg (27.0-31.0); Mean Corpuscular Volume 86.1 fL (81.0-99.0); Mean Platelet Volume 10.2 fL (7.4-10.4); Platelet Count 152 10^3/uL (130-400); Red Blood Cell Count 4.09 10^6/uL (4.20-5.40); Red Cell Dist. Width 12.2 % (11.5-14.5); White Blood Cell Count 7.1 10^3/uL (4.8-10.8)
[2024-10-02 03:40] LABS: APTT 139.1 Sec (23.4-35.0)
--- NOTE | 2024-10-02 04:00 | PTCARENOTE ---
no changes in assessment.
[2024-10-02 04:04] LABS: Blood Urea Nitrogen 16 mg/dl (7-17); Calcium 9.4 mg/dl (8.4-10.2); Carbon Dioxide 28 mmol/L (22-30); Chloride 106 mmol/L (98-107); Estimated Creatinine Clearance 63 ml/min; Glucose 110 mg/dl (70-99); Sodium 140 mmol/L (135-145); eGFR > 60.00
[2024-10-02] MEDS: DUONEB 3 ML INH ×2 (07:31→19:12)
[2024-10-02] MEDS: PULMICORT 0.5 MG INH ×2 (07:31→19:11)
--- NOTE | 2024-10-02 07:44 | W.PN.INTV ---
Today's Communication / Plan
Recommendations
Doing well, remains on IV heparin
MSAS PRN, MS seems stable
Can encouraged OOB today to chair/ambulation
Transfer to tele today, we will follow on floors
Assessment
-
64 year old F with past history of COPD, daily ETOH use, seen here for hypoxemia and SOB. Found to have CTA with bilateral PE and elevated trops suggestive of submassive PE. PERT alert called and currently undergoing catheter directed thrombolysis
with IR. Admitted to ICU 09/30.
Acute hypoxic respiratory failure secondary
Submassive bilateral pulmonary embolism s/p catheter directed lysis 09/29
SOB
Daily drinker
Conditions Present Prior to Admission:
COPD
HTN
Hypercholesterolemia
Anxiety and Depression
Appendectomy
Cholecystectomy
Former Smoker (30 years ago)
Alcohol: Daily (2 Drinks of Vodka plus others)
Plan
Patient does not report any worsening pain
RASS Goal 0
Pain medication with Tylenol as needed
Anxiety and Depression meds to resume when able (Bupropion, Clonazepam, Sertraline, Trazodone)
Hold Adderall
Has history of daily alcohol use with 2 cups of vodka daily plus other drinks, continue to monitor for any signs of withdrawal
MSAS added, PRN
EKG showed Sinus Tachycardia most likely secondary to PE
Troponins elevated, most likely due to non-ischemic myocardial disease
Cardiology were consulted
Echo was done in 10/23/2023 which showed no abnormalities
Repeat ECHO: EF 60%, mildly enlarged right ventricle with reduced systolic function. Dilated right atrium. Moderate tricuspid regurgitation. Estimated pulmonary artery pressure of 43
Continue supplementation with O2
COPD treatment with budesonide nebulizer -> Symbicort after
No prior PFTs for review to confirm, never saw pulmonary
Continue DuoNeb PRN after
Smoking history -> Quit 30 years ago
Will undergo directed lysis of the pulmonary embolism as per IR--catheter removal today 10/01
Unclear history of COPD, may need outpatient follow up with Pulmonology for PFTs and further workup
Diet resumed, tolerating
Distended abdomen for past 6 months, monitor BMs
Colace and anticonstipation medication as needed
Creatinine at baseline
Continue to monitor urine output
Follow I/Os
No fever, no suspected infection, no abx indicated
Observation
On Heparin drip, will be switched to oral anticoagulation after procedure (Most likely Eliquis)
Will need to determine if PE was provoked/unprovoked
No family history of blood disorders as per patient
No recent history of travel
May have been sedentary
Mild hyperglycemia (134), may have to use insulin sliding scale
HbA1c 5.4
Diagnostic Imaging:
CR Chest - 2 Views: No radiographic evidence of acute cardiopulmonary abnormality.
CT Chest PE Study: Extensive bilateral pulmonary emboli, detailed above. There is dilatation of the right ventricle suggesting the presence of right heart strain.
ECHO 09/30/24-Left ventricle is small in size. Normal left ventricular systolic function and wall thickness. Normal regional wall motion. Left ventricular ejection fraction is 60-65% by Galvan's method of discs. Normal diastolic function. Mildly
enlarged right ventricle with reduced systolic function. Dilated right atrium. Moderate tricuspid regurgitation. Estimated pulmonary artery pressure of 43 mmHg assuming a right atrial pressure of 15 mmHg.
Compared to prior study dated 10/23/2023, dilated and hypokinetic right ventricle, dilated right atrium, moderate tricuspid regurgitation and elevated pulmonary pressures are all new findings.
Echo 10/23/2023: Normal left ventricular size, wall thickness and systolic function. No regional wall motion abnormalities are seen. LV ejection fraction is 60-65% by Galvan's method of discs. Normal diastolic function. Normal right ventricular
size and function. No significant valvular disease. No prior study available for comparison.
Total critical care time 35 mins -- The patient is admitted for acute critical illness for the treatment of vital organ failure and/or prevention of further life-threatening conditions. Total care time includes review of medical radiation dosimetrist's
history/presentation, separate physical examination, personal review of medications, hemodynamic parameters, laboratory data/imaging, discussion/coordinating care with house staff, pharmacy, respiratory therapy, webbing inspector, nursing and updating
patient's family.
Subjective Dataa
Subjective Data
Date of Service:
Date of Service: October 02, 2024
Chief Complaint: Tire Mechanic Follow Up
Subjective:
Doing well on heparin
No new complaints
Objective Data
Data Reviewed
Vital Signs / I&O / Oxygen:
Vital Signs
Temp Pulse Resp BP Pulse Ox
99.5 F 69 18 93/72 94
10/01/24 20:00 10/02/24 07:33 10/02/24 07:33 10/02/24 06:00 10/02/24 07:33
Intake and Output
10/01/24 10/02/24 10/03/24
06:59 06:59 06:59
Intake Total 1094 / 1152 927 / 927
Balance 1094 / 1152 927 / 927
SaO2 94
Nasal Cannula flow liters per 4
minute
Physical Exam
General: Comfortable and Other (NAD)
HEENT: Normocephalic, Anicteric and Moist Mucous Membranes
Cardiovascular: S1-S2 and Regular Rhythm
Respiratory: Clear and Non-Labored Respirations
GI: Soft, Non Distended and Non Tender
Neurology: Awake, Alert, Oriented and No Motor Deficits
Skin: Warm, Dry and Good Color
Labs/Micro/Reports
Lab Data
10/02/24 03:03
10/02/24 03:03
Laboratory Results
10/01/24 10/01/24 10/01/24
11:03 13:02 20:23
APTT 39.8 H 38.7 H 94.1 H
10/02/24
03:03
APTT 139.1 H
--- NOTE | 2024-10-02 07:45 | PTCARENOTE ---
She is awake and alert. Speech slow and clear. She is improving in her mentation. She understands why she is in the hospital. Right FA#20g with Hepaaring @ 1200units/hr. Left AC#20g flushed and patent. Weak PT pulses bilaterally, and weak DP pulses.
Normal radial pulses. No edema. Lungs CTA, improved from yesterday in the bases. Nasal cannula 4 liters, tapered to 2 liters while we were conversing and performing ADL's. +BSx4. She reports she had a BM maybe 4 days ago and typically would insert a
suppository. She was advised to increase PO intake and to choose foods to help soften and promote BM. She was able to ambulate to the w/rolling walker and RN assistance with monitor and IV pole. She was able to perform ADL's minimal assistance.
We discussed the importance of medical compliance when it came to her Wellbutrin and Zoloft and how missing doses could have alter her mental state negatively. SHe verbalized her understanding. Safe environment maintained. Will continue to monitor.
[2024-10-02] MEDS: KLONOPIN 0.5 MG PO ×2 (08:12→21:06)
[2024-10-02] MEDS: FOLVITE 1 MG PO (08:12)
[2024-10-02] MEDS: THIAMINE INJECTION 200 MG IV ×2 (08:12→21:06)
[2024-10-02] MEDS: ADDERALL 10 MG PO (08:12)
--- NOTE | 2024-10-02 09:25 | CM ---
Confused patient who was admitted ICU arlet PE.Spoke with her Sampson SOMERS and Sampson JR live in 2 story home with 1 step to enter and bed bathroom on first floor.Last month she has been more confused. She is assisted in mostl activities of daily
living.She is on new oxygen in hospital. she is requiring soft restraints. She issued a right knee immobilizer .
Never had VN/SNF
Pharmacy [facility]
PCP Dr Millan
PLAN will need PT OT eval for dc planning . Watch for oxygen needs
[2024-10-02] MEDS: HEPARIN 25000 UNITS/250 ML IV (10:33)
[2024-10-02 11:32] LABS: APTT 64.2 Sec (23.4-35.0)
[2024-10-02] MEDS: TYLENOL 650 MG PO ×3 (11:34→23:33)
[2024-10-02] MEDS: SENOKOT-S 1 TABLET PO ×2 (11:34→21:06)
--- NOTE | 2024-10-02 11:46 | W.PN.HOSP.TC ---
Today's Communication/Plan
-
IV hep, VTGE Protocol, q6 ptt
follow pulm recs
Assessment / Plan
Assessment / Plan
NAD
Scleral Anicteric
DMM
No JVD
CTABL
RRR, S1/S2
Soft, NT, ND, BS+
Warm, Dry
AAOx3
Calm
Acute hypoxemic respiratory failure secondary to extensive bilateral pulmonary emboli with right heart strain
S/p CDT lysis with interventional radiology
10/01 repeat angiogram completed with improvement in clot burden
10/01 CDT sheath was removed
Started IV heparin drip tranition to PO AC per Pulm Recs
IR, PUlm and Cards following
Nonischemic myocardial injury secondary to pulmonary embolism
Cardiology following
Right heart strain
Confirmed on 2D echocardiogram
Cardiology following recommend repeat 2D ultrasound in 3 months to assess resolution
Alcohol use disorder
Ativan, thiamine folate MSAS
Generalized Anxiety Disorder / Panic Disorder
Continue bupropion, clonazepam, sertraline and trazodone
Hyperlipidemia
Continue Crestor
Anticipated Discharge: 24 - 48 hours
Subjective/Interval History
-
Date of Service: October 02, 2024
seen and examined. no new compaints. no acute ovneright events
has not had a bm in 5days
Objective Data
-
Labs:
Laboratory Results
10/02/24 10/02/24
03:03 10:59
WBC 7.1
Hgb 11.8 L
Hct 35.2 L
Plt Count 152
APTT 139.1 H 64.2 H
Sodium 140
Potassium 4.0
Chloride 106
Carbon Dioxide 28
BUN 16
Creatinine 0.9
Glucose 110 H
Calcium 9.4
Vital Signs:
Vital Signs
Temp Pulse Resp BP Pulse Ox
98 F 70 14 100/69 91
10/02/24 07:55 10/02/24 11:30 10/02/24 09:21 10/02/24 11:00 10/02/24 11:30
I&O
10/01/24 10/02/24 10/03/24
06:59 06:59 06:59
Intake Total 1094 / 1152 7 / 939 66 / 66
Balance 1094 / 1152 927 / 939 66 / 66
--- NOTE | 2024-10-02 12:17 | W.PN.CARDCBS ---
Today's Communication / Plan
-
We will sign off. Please reconsult us if needed.
Plan for outpatient cardiac follow-up in 3-month echo
Impression / Plan
-
Primary Biochemical Engineer: none prior to admission
Assessment:
Presentation with SOB
Acute hypoxic respiratory failure
Extensive B/L PE
Evidence of R heart strain by CT imaging and echocardiogram
Elevated troponin, suspected nonischemic myocardial injury secondary to right heart injury
Transaminitis
Anxiety/depression
HLD
COPD
Former smoker
Daily ETOH use
ECHO 09/30/24: LVEF 60 to 65%. Normal LV size. Mildly enlarged right ventricle with reduced systolic function. Moderate tricuspid regurgitation. Estimated pulmonary artery pressure of 43 mmHg assuming a right atrial pressure of 15 mmHg.
Plan:
-Cardiac status stable. Telemetry stable overnight. Some PVCs noted to my review. Potassium magnesium stable.
-Patient presents with extensive B/L PE. PERT alert was called. started on IV heparin, transition to DOAC per pulmonary and primary service
-She underwent focal lytic therapy in IR
09/30/24 Arteriogram performed. PA pressure 33/17, mean 23 mmHg
10/01/24 Followup pulmonary arteriogram shows much improved embolus burden, and improved parenchymal perfusion. PA pressure 34/17, mean 20 mm Hg.
-Given right heart dysfunction will need to continue to follow as an outpatient with 3-month echocardiogram discussed with patient. Thankfully mean PA pressure and PA pressures have improved post lytics as noted. Data reviewed.
-continue supp O2, wean as able
-Noted elevated trop consistent with pulmonary embolism and right heart strain. Troponins have down trended prior.
-Patient's sees Dr. Zavala in office.
We will sign off. Please reconsult us if new cardiac issues develop. We will make follow-up arrangements for patient to be seen postop in 3-month EKG.
Progress Note - Biochemical Engineer
Subjective
Date of Service: October 02, 2024
She denies chest pain and shortness of breath of significance. She is constipated
Objective
Labs:
10/02/24 03:03
10/02/24 03:03
Labs
Hgb 11.8 g/dL (12.0-16.0) L 10/02/24 03:03
Hct 35.2 % (37.0-47.0) L 10/02/24 03:03
Plt Count 152 10^3/uL (130-400) 10/02/24 03:03
PT 14.4 Sec (11.4-14.6) 10/01/24 04:16
INR 1.09 10/01/24 04:16
APTT 64.2 Sec (23.4-35.0) H 10/02/24 10:59
Sodium 140 mmol/L (135-145) 10/02/24 03:03
Potassium 4.0 mmol/L (3.5-5.1) 10/02/24 03:03
BUN 16 mg/dl (7-17) 10/02/24 03:03
Creatinine 0.9 mg/dL (0.6-1.0) 10/02/24 03:03
Glucose 110 mg/dl (70-99) H 10/02/24 03:03
Troponins
09/30/24 09/30/24 10/01/24
11:05 19:44 00:14
Troponin I 0.223 H* 0.777 H* 0.651 H*
10/01/24
04:16
Troponin I 0.439 H* D
Vital Signs and I&O:
Vital Signs
Temp Pulse Resp BP Pulse Ox
98 F 70 14 100/69 91
10/02/24 07:55 10/02/24 11:30 10/02/24 09:21 10/02/24 11:00 10/02/24 11:30
Vital Signs
Temp Pulse Resp BP Pulse Ox
98 F 70 14 100/69 91
10/02/24 07:55 10/02/24 11:30 10/02/24 09:21 10/02/24 11:00 10/02/24 11:30
Intake & Output
09/30/24 10/01/24 10/02/24 10/03/24
06:59 06:59 06:59 06:59
Intake Total 1094 / 1152 7 / 939
Balance 1094 / 1152 7 / 939
Physical Exam
Physical Exam
General: Well developed, well nourished in NAD.
Heart: Non displaced PMI, RRR, no murmurs, No S3, S4, no rubs.
Lungs: C coarse anterior breath sounds
Extremities: No clubbing, cyanosis or edema bilaterally.
Neuro: Awake and appropriate
[2024-10-02] MEDS: HEPARIN 3300 UNITS IV (12:37)
--- NOTE | 2024-10-02 12:53 | PTCARENOTE ---
Pt reclined in the chair and desaturated to 87% on RA. 2 L NC applied, Spo2 91-94%. She stated her lower back pain was improved after Tylenol administered and she was reclined in the chair with the legs elevated. She is taking a nap at this time.
[2024-10-02] MEDS: KLONOPIN PO (15:45)
--- NOTE | 2024-10-02 16:32 | PTCARENOTE ---
Her family is at the bedside. Very pleasant. Informed of the importance that she takes her Wellbutrin and Zoloft as prescribed and not miss doses to regulate her mood and hopefully limit the amount of other PRN medications that she uses regularly.
Safe environment maintained. They are aware she will be going home on an OAC and to ask for cost prior to discharge due to limited income.
[2024-10-02] MEDS: WELLBUTRIN XL (24 hour extended release) 300 MG PO (16:45)
[2024-10-02] MEDS: CRESTOR 5 MG PO (16:45)
[2024-10-02] MEDS: ZOLOFT 50 MG PO (16:45)
[2024-10-02 19:02] LABS: APTT 136.6 Sec (23.4-35.0)
[2024-10-02] MEDS: ATARAX 25 MG PO (19:12)
--- NOTE | 2024-10-02 19:30 | PTCARENOTE ---
field automobile adjuster, pt aaox3, per pt request-prn atarax for anxiety. B/L IV WNL- Heparin gtt infusing per work list. POC disucssed, bed alarm on, call merari w/pt.
[2024-10-02] MEDS: ADDERALL PO (19:38)
[2024-10-02] MEDS: DESYREL 50 MG PO (21:06)
[2024-10-03] VITALS (10 sets, daily range): BP systolic 103–142; BP diastolic 59–98; PULSE 76; O2SAT 96; BMI 32.5
[2024-10-03 03:52] LABS: Hematocrit 31.8 % (37.0-47.0); Hemoglobin 10.8 g/dL (12.0-16.0); Mean Corpuscular Hgb 29.2 pg (27.0-31.0); Mean Corpuscular Volume 85.9 fL (81.0-99.0); Mean Platelet Volume 10.1 fL (7.4-10.4); Platelet Count 153 10^3/uL (130-400); Red Cell Dist. Width 12.2 % (11.5-14.5); White Blood Cell Count 6.7 10^3/uL (4.8-10.8)
[2024-10-03 04:00] LABS: APTT 59.3 Sec (23.4-35.0)
[2024-10-03] MEDS: HEPARIN 25000 UNITS/250 ML IV (04:32)
[2024-10-03] MEDS: HEPARIN 6600 UNITS IV (04:32)
[2024-10-03] MEDS: DUONEB 3 ML INH (07:21)
[2024-10-03] MEDS: PULMICORT 0.5 MG INH (07:21)
[2024-10-03] MEDS: ADDERALL 10 MG PO (07:47)
[2024-10-03] MEDS: DULCOLAX 10 MG RECTAL (07:47)
[2024-10-03] MEDS: SENOKOT-S 1 TABLET PO ×2 (07:47→19:40)
[2024-10-03] MEDS: FOLVITE 1 MG PO (07:47)
[2024-10-03] MEDS: KLONOPIN 0.5 MG PO ×3 (07:47→21:14)
[2024-10-03] MEDS: THIAMINE INJECTION 200 MG IV (07:47)
--- NOTE | 2024-10-03 08:28 | W.PN.PUL3 ---
Today's Communication / Plan
-
Transition off heparin gtt to Eliquis this AM
Consult CM to assess cost
If eliquis too costly then would do Xarelto
Up OOB as tolerated; PT/OT
Check LE duplex to assess for DVT
Change budesonide to Symbicort
prn DuoNebs
Awaiting TXR out of unit to floors
Pulmonary will continue to briefly follow along; outpatient follow up will be arranged
Assessment
-
64 year old F with past history of COPD, daily ETOH use, seen here for hypoxemia and SOB. Found to have CTA with bilateral PE and elevated trops suggestive of submassive PE. PERT alert called and currently undergoing catheter directed thrombolysis
with IR. Admitted to ICU 09/30.
Acute hypoxic respiratory failure secondary
Submassive saddle pulmonary embolism with high risk features s/p catheter directed lysis 09/30
SOB - markedly improved
Daily EtOH drinker
Conditions Present Prior to Admission:
COPD
HTN
Hypercholesterolemia
Anxiety and Depression
Appendectomy
Cholecystectomy
Former Smoker (30 years ago)
Alcohol: Daily (2 Drinks of Vodka plus others)
Plan
Patient has markedly improved, currently remains on heparin drip and she denies shortness of breath or chest pain and is on room air breathing comfortably saturating 93-94%
Given that she had catheter directed thrombolysis, believe it is safe to transition her to NOAC today
Would change heparin gtt to Eliquis now
Unclear if PE was provoked or not --> No family history of blood disorders as per patient; No recent history of travel; May have been sedentary
CM consult to assess affordability of Eliquis
Outpatient hematology consult for hypercoagulable workup
Check lower extremity duplex today to rule out DVT
Transthoracic echo on 09/30/2024 showed moderately elevated PASP at 43 mmHg, with mildly enlarged RV with reduced systolic function and moderate TR
Continue pain control
Continue her anxiety and depression meds (Bupropion, Clonazepam, Sertraline, Trazodone)
Psych consulted by hospitalist --> defer Adderall resumption to psych
Has history of daily alcohol use with 2 cups of vodka daily plus other drinks, continue to monitor for any signs of withdrawal
MSAS added, PRN
Continue thiamine + folic acid
EKG showed Sinus Tachycardia most likely secondary to PE
Troponins were elevated which peaked at 0.777 on 09/30/2024 � no longer need to continue trending at this time - troponin elevation was most likely due to non-ischemic myocardial disease
proBNP initially was 252 ---> also due to acute PE
Cardiology consulted - recs appreciated (signed off on 10/02)
Echo was done in 10/23/2023 which showed no abnormalities
Repeat ECHO: EF 60-65%, mildly enlarged right ventricle with reduced systolic function. Dilated right atrium. Moderate tricuspid regurgitation. Estimated pulmonary artery pressure of 43
Repeat echo in 3 months
COPD treatment with budesonide nebulizer -> will change to Symbicort
No prior PFTs for review to confirm, never saw pulmonary
Continue DuoNeb PRN
Smoking history -> Quit 30 years ago
Unclear history of COPD, I will arrange for outpatient pulmonary office follow up for PFTs and further workup
Continue cholesterol-lowering diet
Patient says that she has been having difficulty swallowing solids for the last several months, no difficulty with fluids. Defer consulting GI to primary service
Distended abdomen for past 6 months, monitor BMs
Colace and anticonstipation medication as needed
Creatinine at baseline
Continue to monitor urine output
Follow I/Os
No fever, no suspected infection, no abx indicated
Observation
Goal BG >100 and <180
HbA1c 5.4 from 09/30/2024
Pulmonary service will continue to briefly follow along.
Diagnostic Imaging:
CR Chest - 2 Views: No radiographic evidence of acute cardiopulmonary abnormality.
CT Chest PE Study: Extensive bilateral pulmonary emboli, detailed above. There is dilatation of the right ventricle suggesting the presence of right heart strain.
ECHO 09/30/24-Left ventricle is small in size. Normal left ventricular systolic function and wall thickness. Normal regional wall motion. Left ventricular ejection fraction is 60-65% by Galvan's method of discs. Normal diastolic function. Mildly
enlarged right ventricle with reduced systolic function. Dilated right atrium. Moderate tricuspid regurgitation. Estimated pulmonary artery pressure of 43 mmHg assuming a right atrial pressure of 15 mmHg.
Compared to prior study dated 10/23/2023, dilated and hypokinetic right ventricle, dilated right atrium, moderate tricuspid regurgitation and elevated pulmonary pressures are all new findings.
Echo 10/23/2023: Normal left ventricular size, wall thickness and systolic function. No regional wall motion abnormalities are seen. LV ejection fraction is 60-65% by Galvan's method of discs. Normal diastolic function. Normal right ventricular
size and function. No significant valvular disease. No prior study available for comparison.
Total time spent today was 57 minutes for this encounter. Time includes reviewing laboratory test/imaging results, reviewing pertinent medical records, obtaining and reviewing medical history, performing an appropriate exam, ordering medications,
tests and procedures. Time also includes documentation of this encounter, coordinating patient care and communicating with other healthcare professionals. Total time does not include separately billed tests performed on this date of service.
Subjective Data
-
Date of Service:
Date of Service: October 03, 2024
Chief Complaint: Pulmonary Follow Up and VTE Follow Up
Subjective:
Pt seen this AM. She is doing well. Sitting in chair in NAD - she actually denies SOB or chest pain. Reports difficulty swallowing solids where it gets 'stuck,' and its been ongoing for few months now. Currently saturating 94% on room air.
Review of Systems
General: Other (Negative unless mentioned above)
Objective Data
Data Reviewed
Vital Signs / I&O / Oxygen:
Vital Signs
Temp Pulse Resp BP Pulse Ox
98.2 F 65 16 120/68 94
10/03/24 04:00 10/03/24 04:00 10/02/24 19:14 10/03/24 04:00 10/03/24 04:00
Intake and Output
10/02/24 10/03/24 10/04/24
06:59 06:59 06:59
Intake Total 927 / 939 1000 / 1000
Balance 927 / 939 1000 / 1000
SaO2 94
Nasal Cannula flow liters per 2
minute
Physical Exam
General: Respiratory Distress (negative), Comfortable, Chills (negative) and Sweats (negative)
HEENT: Normocephalic and Anicteric
Cardiovascular: S1-S2 and Peripheral Edema (negative)
Respiratory: Wheeze (negative), Crackles (negative), Rhonchi (negative), Non-Labored Respirations and Stridor (negative)
GI: Soft, Non Distended, Non Tender and Normal Bowel Sounds
Neurology: Awake, Alert, Oriented and Tremors (negative)
Skin: Warm, Dry, Cyanosis (negative) and Jaundice (negative)
Labs/Micro/Reports
Lab Data
10/03/24 03:28
10/02/24 03:03
Laboratory Results
10/02/24 10/02/24 10/03/24
10:59 18:33 03:28
APTT 64.2 H 136.6 H 59.3 H
Microbiology
09/30/24 18:28 Nose MRSA Screen - Final
No Methicillin Resistant Staphylococcus aureus isolated.
--- NOTE | 2024-10-03 09:54 | W.PN.HOSP.TC ---
Today's Communication/Plan
-
recheck hemoglobin later today
Consult psych for help to manage her panic disorder
Continue with systemic anticoagulation
Assessment / Plan
Assessment / Plan
Physical Exam
General: not in respiratory distress
HEENT: Anicteric and Oxygen (Nasal Cannula)
Respiratory: Clear and Other (Slightly tachypneic without use of accessory muscles)
Cardiac: S1/S2, and Murmur (II/ Systolic Murmur)
GI: Soft and Non Tender
Rectal: No rectal bleeding
Musculoskeletal: No Clubbing, No Cyanosis and No Edema
Skin: Warm and Dry
Neuro: Awake, Alert, Oriented and Nonfocal/grossly intact
Psych: Anxious , tearful
Acute hypoxemic respiratory failure secondary to extensive bilateral pulmonary emboli with right heart strain
No hypoxia, will do ambulatory SaO2
S/p CDT lysis with interventional radiology
10/01 repeat angiogram completed with improvement in clot burden
10/01 CDT sheath was removed
s/p IV heparin drip and change to Eliquis loading dose.
Appreciate IR, Pulm and Cardiology doctors help
Nonischemic myocardial injury secondary to pulmonary embolism
No chest pain
Cardiology following
Right heart strain
Confirmed on 2D echocardiogram
Cardiology following recommend repeat 2D ultrasound in 3 months to assess resolution
Alcohol use disorder
Ativan, thiamine folate MSAS
Generalized Anxiety Disorder / Panic Disorder
Patient reports feeling anxious despite home medications. Her psychiatrist retired and has not followed with specialist. She is on twice a day Adderall, nighttime of( bupropion,sertraline and trazodone), she also uses Klonopin 1-2 3 times a day
as needed and uses alcohol to help with anxiety
Will ask psychiatry for help to adjust her medication and treat her anxiety
Hyperlipidemia
Continue Crestor
# Mild acute blood loss anemia,
Recheck hemoglobin today
#Elevated liver enzyme, no GI symptoms, recheck LFT in a.m.
Total time spent to see the patient, examine the patient, review data and lab results, discuss treatment plan with patient, bingo worker and nursing staff around 55 minutes
Anticipated Discharge: > 48 hours
Subjective/Interval History
-
Date of Service: October 03, 2024
No chest pain
No sob
No fevers
Objective Data
-
Labs:
Laboratory Results
10/03/24 10/03/24
03:28 10:30
WBC 6.7
Hgb 10.8 L
Hct 31.8 L
Plt Count 153
APTT 59.3 H Pending
Vital Signs:
Vital Signs
Temp Pulse Resp BP Pulse Ox
98 F 73 12 103/67 98
10/03/24 07:10 10/03/24 08:00 10/03/24 07:40 10/03/24 07:40 10/03/24 07:40
I&O
10/02/24 10/03/24 10/04/24
06:59 06:59 06:59
Intake Total 927 / 939 1014 / 1028
Balance 927 / 939 1014 / 1028
[2024-10-03] MEDS: ELIQUIS 10 MG PO ×2 (10:00→19:40)
[2024-10-03] MEDS: TYLENOL 650 MG PO (10:00)
--- NOTE | 2024-10-03 10:07 | PTCARENOTE ---
pt assisted back to bed for bedside us of legs
--- NOTE | 2024-10-03 11:04 | PTCARENOTE ---
Pt has been initiated on eliquis and heparin gtt stopped. Written material provided on eliquis. Pt was reading paperwork and mentioned she had dental surgery coming up. I confirmed with Dr Rodgers that he recommended pt delaying surgery(denture)
for 3 months. Pt is aware.
[2024-10-03 13:14] LABS: Hemoglobin 11.7 g/dL (12.0-16.0)
[2024-10-03] MEDS: ATARAX 25 MG PO (13:50)
--- NOTE | 2024-10-03 14:12 | PTOTSP ---
pt currently requires supervision to complete simple ADLs, functional transfers, ambulation. no overt deficits noted, reports spouse is able to assist as needed. will sign off, no acute OT needs identified.
--- NOTE | 2024-10-03 14:45 | PN.CDI ---
Addendum entered and electronically signed by Suzi Gomez MD 10/03/24 15:11:
bilateral PE with cor pulmonale
Original Note:
CDI
- -
CDI:
Physician Documentation Request
Admit Date: 09/30/24 13:31
Dear Doctor Patricia,
Patient admitted for management of extensive bilateral pulmonary emboli with right heart strain.
Echo report states ' Compared to prior study dated 10/23/2023, dilated and hypokinetic right ventricle, dilated right atrium, moderate tricuspid regurgitation and elevated pulmonary pressures are all new findings' Estimated pulmonary artery pressure
43 mmHg.
Could you please further specify:
bilateral PE with cor pulmonale
bilateral PE without cor pulmonale
Other
Use of terms such as suspected, likely, concern for, or probable (associated with a specific diagnosis that is being evaluated, monitored, or treated as if it exists) are acceptable and can be coded in the inpatient setting, when documented at the
time of discharge.
Thank you,
Maribell Marlow RN, BSN
CDI Specialist
tiger text
Please use your independent medical judgment in providing your response.
--- NOTE | 2024-10-03 15:03 | CM ---
CM reviewed chart, consult received for tapia check of Eliquis. CM placed call to patients prescription coverage , informed cost of Eliquis (90 day supply) $44.42, informed patient needs to contact member services regarding a mallory
period/update patient profile/plan. Insurance could not provide CM any further information regarding this. Per PT evaluation, recommending home health services. Patient seen bedside on the phone, asked CM to return at another time. CM will continue
to follow for all discharge planning needs.
Plan; home no needs vs VN
--- NOTE | 2024-10-03 15:05 | CS.PSYCHR ---
Consult Summary - Psychiatry
-
Pt is a 64 yo female with history of anxiety, COPD, who presented with shortness of breath, much worse than usual. Pt was hypoxic with O2 sat of 81% on RA at urgent care, was brought to ED for eval, found to have extensive bilateral pulmonary
emboli with evidence of right heart strain. Patient denies any chest pains or lower extremity edema. Psychiatry asked to assess due to anxiety and polypharmacy. Pt seen sitting up in chair, in very mild/minimal distress. She c/o feeling stress
due to lack of sense of control, worried about being home before . Pt reportedly drinking vodka '2 mixed drinks' nightly at home. Reviewed psychiatric medications: on Adderall 10 mg BID- states she takes 1 to 2 times per day, states she has
been on this for '30 years', Klonopin 0.5 mg 3x/ day, Sertraline 50 mg QD, Trazodone 50 mg HS, Wellbutrin XL 300 mg AM. Pt states her provider is moving and she was referred to a new prescriber at [facility] for med mgt.
Psych Hx: anxiety off and on for many years, denies hx of inpatient treatment. Hx of depression with inactivity, excess sleep. Reports she had a virtual therapist from last March until recently
Hx of past Rx Xanax, Atarax.
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 , has 3 sons, one lives at home.
MSE: alert, oriented, calm, cooperative, pleasant. No acute distress this afternoon. Mood stable, affect appropriate/ mildly blunted. No signs of psychosis. Denies SI. Insight limited to fair
Imp: Unspecified anxiety and depressive d/o. Will taper Adderall to 10 mg AM only (ordered at 8 pm and declined).
Otherwise, would continue existing psychotropic med regimen while here. Additional changes/reductions can be made as an outpatient, when pt is more medically stable
Will follow
[2024-10-03] MEDS: WELLBUTRIN XL (24 hour extended release) 300 MG PO (17:35)
[2024-10-03] MEDS: CRESTOR 5 MG PO (17:35)
[2024-10-03] MEDS: ZOLOFT 50 MG PO (17:35)
[2024-10-03] MEDS: VITAMIN B1 100 MG PO (19:40)
[2024-10-03] MEDS: SYMBICORT 160/4.5 MCG INHALER 2 PUFF INH (19:47)
--- NOTE | 2024-10-03 20:00 | PTCARENOTE ---
Rec'd pt resting in bed, bed alarm on, forgetful at times, uses call gage appropriately, uses walker to amb to bathroom, SR, bp stable, weak distal pulses, skin warm/dry, RA, lungs decr in bases, sat 95, + bowel sounds, abd soft, no n/v, voids in
bathroom
[2024-10-03] MEDS: MAALOX 30 ML PO (21:14)
[2024-10-03] MEDS: DESYREL 50 MG PO (21:14)
--- NOTE | 2024-10-03 21:22 | PTCARENOTE ---
maalox 30ml po given for indigestion 'from the salmon I ate at dinner'
[2024-10-04] VITALS (8 sets, daily range): BP systolic 105–136; BP diastolic 66–122; BMI 31.3
--- NOTE | 2024-10-04 | PTCARENOTE ---
sys reviewed, changes noted
[2024-10-04 04:37] LABS: Hematocrit 33.3 % (37.0-47.0); Hemoglobin 11.3 g/dL (12.0-16.0); Mean Corp Hgb Conc. 33.9 g/dL (33.0-37.0); Mean Corpuscular Hgb 28.5 pg (27.0-31.0); Mean Corpuscular Volume 84.1 fL (81.0-99.0); Mean Platelet Volume 9.8 fL (7.4-10.4); Platelet Count 167 10^3/uL (130-400); Red Blood Cell Count 3.96 10^6/uL (4.20-5.40); Red Cell Dist. Width 12.1 % (11.5-14.5); White Blood Cell Count 6.6 10^3/uL (4.8-10.8)
[2024-10-04 05:11] LABS: ALT (SGPT) 20 U/L (0-35); AST (SGOT) 18 U/L (14-36); Albumin 3.8 g/dl (3.5-5.0); Alkaline Phosphatase 84 U/L (38-126); Blood Urea Nitrogen 15 mg/dl (7-17); Calcium 9.4 mg/dl (8.4-10.2); Carbon Dioxide 27 mmol/L (22-30); Chloride 105 mmol/L (98-107); Estimated Creatinine Clearance 62 ml/min; Glucose 107 mg/dl (70-99); Potassium 3.9 mmol/L (3.5-5.1); Sodium 141 mmol/L (135-145); Total Bilirubin 0.5 mg/dl (0.2-1.3); Total Protein 6.3 g/dl (6.3-8.2); eGFR > 60.00
[2024-10-04] MEDS: ADDERALL 10 MG PO (07:44)
[2024-10-04] MEDS: KLONOPIN 0.5 MG PO ×3 (07:44→20:51)
[2024-10-04] MEDS: SENOKOT-S 1 TABLET PO (07:44)
[2024-10-04] MEDS: ELIQUIS 10 MG PO ×2 (07:44→20:51)
[2024-10-04] MEDS: VITAMIN B1 100 MG PO ×2 (07:45→20:51)
[2024-10-04] MEDS: FOLVITE 1 MG PO (07:45)
[2024-10-04] MEDS: SYMBICORT 160/4.5 MCG INHALER 2 PUFF INH ×2 (08:00→20:19)
--- NOTE | 2024-10-04 08:29 | W.PN.PUL3 ---
Today's Communication / Plan
-
Continue Eliquis
CM on board to assess cost
Up OOB as tolerated; PT/OT
Continue Symbicort
prn DuoNebs
NOX study tonight; outpatient evaluation for SDB with possible sleep study
Pulmonary will continue to briefly follow along; outpatient follow up will be arranged
Assessment
-
64 year old F with past history of COPD, daily ETOH use, seen here for hypoxemia and SOB. Found to have CTA with bilateral PE and elevated trops suggestive of submassive PE. PERT alert called and currently undergoing catheter directed thrombolysis
with IR. Admitted to ICU 09/30.
Acute hypoxic respiratory failure due to acute PE
Submassive saddle pulmonary embolism with high risk features s/p catheter directed lysis 09/30
SOB - markedly improved
Daily EtOH drinker
Conditions Present Prior to Admission:
COPD
HTN
Hypercholesterolemia
Anxiety and Depression
Appendectomy
Cholecystectomy
Former Smoker (30 years ago)
Alcohol: Daily (2 Drinks of Vodka plus others)
Plan
Patient has markedly improved - was transitioned off heparin gtt to Eliquis on 10/03l she continues to deny SOB or chest pain and is on room air breathing comfortably saturating 93-94%
Unclear if PE was provoked or not --> No family history of blood disorders as per patient; No recent history of travel; May have been sedentary
CM consulted to assess affordability of Eliquis
Outpatient hematology consult for hypercoagulable workup
Lower extremity duplex on 10/03 showed no evidence for DVT
Transthoracic echo on 09/30/2024 showed moderately elevated PASP at 43 mmHg, with mildly enlarged RV with reduced systolic function and moderate TR - repeat echo in 3 months
Pain control
Continue her anxiety and depression meds (Bupropion, Clonazepam, Sertraline, Trazodone)
Psych consulted by hospitalist --> Adderall resumed
Has history of daily alcohol use with 2 cups of vodka daily plus other drinks, continue to monitor for any signs of withdrawal
MSAS added, PRN
Continue thiamine + folic acid
EKG showed Sinus Tachycardia most likely secondary to PE - HR is normal rate as of 10/04
Troponins were elevated which peaked at 0.777 on 09/30/2024 � no longer need to continue trending at this time - troponin elevation was most likely due to non-ischemic myocardial disease
proBNP initially was 252 ---> also due to acute PE
Cardiology consulted - recs appreciated (signed off on 10/02)
Echo was done in 10/23/2023 which showed no abnormalities
Repeat ECHO: EF 60-65%, mildly enlarged right ventricle with reduced systolic function. Dilated right atrium. Moderate tricuspid regurgitation. Estimated pulmonary artery pressure of 43
Repeat echo in 3 months
COPD treatment with budesonide nebulizer -> changed to Symbicort on 10/03
No prior PFTs for review to confirm, never saw pulmonary
Continue DuoNeb PRN
Smoking history -> Quit 30 years ago
Unclear history of COPD, I will arrange for outpatient pulmonary office follow up for PFTs and further workup of possible sleep disordered breathing given continued nocturnal hypoxia
She says she does not snore and her has not seen her stop breathing at night and she has refreshing sleep. Regardless, she has been desaturating with sleep and requiring 2 L/min nasal cannula. I will check a nocturnal oximetry study
tonight and will discuss if sleep study is needed as an outpatient
Continue cholesterol-lowering diet
Patient says that she has been having difficulty swallowing solids for the last several months, no difficulty with fluids. Defer consulting GI to primary service
Distended abdomen for past 6 months, monitor BMs
Colace and anticonstipation medication as needed
Creatinine at baseline
Continue to monitor urine output
Follow I/Os
No fever, no suspected infection, no abx indicated
Observation
Goal BG >100 and <180
HbA1c 5.4 from 09/30/2024
Pulmonary service will continue to briefly follow along.
Diagnostic Imaging:
CR Chest - 2 Views: No radiographic evidence of acute cardiopulmonary abnormality.
CT Chest PE Study: Extensive bilateral pulmonary emboli, detailed above. There is dilatation of the right ventricle suggesting the presence of right heart strain.
ECHO 09/30/24-Left ventricle is small in size. Normal left ventricular systolic function and wall thickness. Normal regional wall motion. Left ventricular ejection fraction is 60-65% by Galvan's method of discs. Normal diastolic function. Mildly
enlarged right ventricle with reduced systolic function. Dilated right atrium. Moderate tricuspid regurgitation. Estimated pulmonary artery pressure of 43 mmHg assuming a right atrial pressure of 15 mmHg.
Compared to prior study dated 10/23/2023, dilated and hypokinetic right ventricle, dilated right atrium, moderate tricuspid regurgitation and elevated pulmonary pressures are all new findings.
Echo 10/23/2023: Normal left ventricular size, wall thickness and systolic function. No regional wall motion abnormalities are seen. LV ejection fraction is 60-65% by Galvan's method of discs. Normal diastolic function. Normal right ventricular
size and function. No significant valvular disease. No prior study available for comparison.
Total time spent today was 38 minutes for this encounter. Time includes reviewing laboratory test/imaging results, reviewing pertinent medical records, obtaining and reviewing medical history, performing an appropriate exam, ordering medications,
tests and procedures. Time also includes documentation of this encounter, coordinating patient care and communicating with other healthcare professionals. Total time does not include separately billed tests performed on this date of service.
Subjective Data
-
Date of Service:
Date of Service: October 04, 2024
Chief Complaint: Pulmonary Follow Up and VTE Follow Up
Subjective:
Patient was seen and evaluated this AM at bedside. She is sitting in chair no acute distress. Heart rate 80, BP 105/66 and saturating 93% on room air. She has been needing up to 2 L/min with sleep due to hypoxia. She says she has not had a bowel
movement in 5 days, however RN says she had a bowel movement yesterday. Patient has intermittent confusion. She currently denies chest pain, SHARIF, shortness of breath, fevers or chills.
Review of Systems
General: Other (Negative unless mentioned above)
Objective Data
Data Reviewed
Vital Signs / I&O / Oxygen:
Vital Signs
Temp Pulse Resp BP Pulse Ox
98.2 F 77 16 105/66 96
10/04/24 07:39 10/04/24 08:03 10/04/24 08:03 10/04/24 08:00 10/04/24 08:03
Intake and Output
10/03/24 10/04/24 10/05/24
06:59 06:59 06:59
Intake Total 1014 / 1028 722 / 722
Balance 1014 / 1028 722 / 722
SaO2 96
Nasal Cannula flow liters per 2
minute
Physical Exam
General: Respiratory Distress (negative), Comfortable, Chills (negative) and Sweats (negative)
HEENT: Normocephalic and Anicteric
Cardiovascular: S1-S2, Murmur (CATHERINE heard best at LUSB) and Peripheral Edema (negative)
Respiratory: Clear, Wheeze (negative), Crackles (negative), Rhonchi (negative), Non-Labored Respirations and Stridor (negative)
GI: Soft, Distended (Abdominal obesity), Non Tender and Normal Bowel Sounds
Neurology: Awake, Alert and Tremors (negative)
Skin: Warm, Dry, Cyanosis (negative) and Jaundice (negative)
Labs/Micro/Reports
Lab Data
10/04/24 04:15
10/04/24 04:15
Laboratory Results
10/03/24
10:30
APTT Cancelled
Microbiology
09/30/24 18:28 Nose MRSA Screen - Final
No Methicillin Resistant Staphylococcus aureus isolated.
--- NOTE | 2024-10-04 09:57 | PTCARENOTE ---
pt is awake and alert , impulsive with getting out of bed, she is steady with the walker , HR NSR on monitor , she is on room air , denies SOB and dizziness , day 2 of Eliquis , tolerating well
--- NOTE | 2024-10-04 11:07 | W.PN.HOSP.TC ---
Today's Communication/Plan
-
DC 10/05
Home health
c/w ELiquis
Assessment / Plan
Assessment / Plan
Physical Exam
General: not in respiratory distress
HEENT: Anicteric and Oxygen (Nasal Cannula)
Respiratory: Clear and Other (Slightly tachypneic without use of accessory muscles)
Cardiac: S1/S2, and Murmur (II/ Systolic Murmur)
GI: Soft and Non Tender
Rectal: No rectal bleeding
Musculoskeletal: No Clubbing, No Cyanosis and No Edema
Skin: Warm and Dry
Neuro: Awake, Alert, Oriented and Nonfocal/grossly intact
Psych: Anxious , tearful
Acute hypoxemic respiratory failure secondary to extensive bilateral pulmonary emboli with right heart strain
No hypoxia, normal ambulatory SaO2
S/p CDT lysis with interventional radiology
10/01 repeat angiogram completed with improvement in clot burden
10/01 CDT sheath was removed
s/p IV heparin drip and changed to Eliquis loading dose. Counseled about potential side effects of systemic anticoagulation, she verbalized understanding.
Appreciate IR, Pulm and Cardiology doctors help
Nonischemic myocardial injury secondary to pulmonary embolism
No chest pain
Cardiology followed
Right heart strain
Confirmed on 2D echocardiogram
Cardiology following recommend repeat 2D ultrasound in 3 months to assess resolution
Alcohol use disorder
NO DT
Lucid, AAOX3, no tremor.
Ativan, thiamine folate MSAS
Generalized Anxiety Disorder / Panic Disorder
Patient reports feeling anxious despite home medications. Her psychiatrist retired and has not followed with specialist. She is on twice a day Adderall, nighttime of( bupropion,sertraline and trazodone), she also uses Klonopin 1-2 3 times a day
as needed and uses alcohol to help with anxiety
Seen by psychiatry for help to adjust her medication and treat her anxiety, reduced Adderall to once a day
Hyperlipidemia
Continue Crestor
# Mild acute blood loss anemia, dilutional
Recheck hemoglobin seems stable.
#Elevated liver enzyme, no GI symptoms, resolved.
Total time spent to see the patient, examine the patient, review data and lab results, discuss treatment plan with patient, billboard poster helper and nursing staff around 55 minutes
Anticipated Discharge: Within 24 hours
Subjective/Interval History
-
Date of Service: October 04, 2024
She feels better
She denies chest pain or sob
She wants to go home tomorrow
Objective Data
-
Labs:
Laboratory Results
10/04/24
04:15
WBC 6.6
Hgb 11.3 L
Hct 33.3 L
Plt Count 167
Sodium 141
Potassium 3.9
Chloride 105
Carbon Dioxide 27
BUN 15
Creatinine 0.9
Glucose 107 H
Calcium 9.4
Total Bilirubin 0.5
AST 18
ALT 20
Alkaline Phosphatase 84
Vital Signs:
Vital Signs
Temp Pulse Resp BP Pulse Ox
98.2 F 77 16 105/66 96
10/04/24 07:39 10/04/24 08:03 10/04/24 08:03 10/04/24 08:00 10/04/24 08:03
I&O
10/03/24 10/04/24 10/05/24
06:59 06:59 06:59
Intake Total 1014 / 1028 722 / 722
Balance 1014 / 1028 722 / 722
--- NOTE | 2024-10-04 12:51 | CM ---
CM following re: discharge planning.
Reviewed pt's chart, met with pt.
According to pt will be ready for discharge tomorrow and pt will need VN services and pt will have Eliquis medication.
Pt is aware, expressed her agreement and she stated her will transport home. Pt is aware that VN services indicated and pt is requested [facility],. A referral to VN made.
Free 30 days Eliquis coupon trial with $10.00 monthly co-pay card given to the pt. Pt has commercial insurance.
Pt reports she has canes at home and a walker and she will use them as needed.
[facility] at [phone].
D/C plan: home tomorrow with [facility] and family support. to transport at discharge.
--- NOTE | 2024-10-04 13:32 | VNURNOTE ---
Home Health Liaison met with patient at bedside to discuss VN nurse/therapy, visits, schedule and homebound status. Patient is agreeable and understands that visits at home will be 2-3 x per week to assess and teach medical management. Reviewed
homebound criteria. She tells this author she does not drive; depends on spouse for transportation. [facility] that [facility] care in 1-2 days after discharge from . [facility] completed [facility].
[2024-10-04] MEDS: CRESTOR 5 MG PO (17:33)
[2024-10-04] MEDS: WELLBUTRIN XL (24 hour extended release) 300 MG PO (17:33)
[2024-10-04] MEDS: ZOLOFT 50 MG PO (17:33)
--- NOTE | 2024-10-04 18:16 | PTCARENOTE ---
no change in assessments
[2024-10-04] MEDS: DESYREL 50 MG PO (20:51)
[2024-10-04] MEDS: SENOKOT-S PO (20:51)
--- NOTE | 2024-10-04 22:00 | TRANSFER ---
Report given to 4 Koko ALBARADO, Arvind. Pt tsx'd via wheelchair to room 418-02 w/ personal belongings.
--- NOTE | 2024-10-04 22:04 | PTCARENOTE ---
Patient arrived to unit around 21:30 via w/c transfer from ICU. AAOX3. MSAS score on assessment was 0. Denies pain or discomfort. Bed alarm applied. Continuous pulse ox applied with 95% room air. Oriented to unit. Call gage within reach. Educated
that must use call gage for assist.
[2024-10-05] MEDS: VITAMIN B1 100 MG PO (07:21)
[2024-10-05] MEDS: ADDERALL 10 MG PO (07:21)
[2024-10-05] MEDS: FOLVITE 1 MG PO (07:21)
[2024-10-05] MEDS: SENOKOT-S 1 TABLET PO (07:21)
[2024-10-05] MEDS: ELIQUIS 10 MG PO (07:21)
[2024-10-05] MEDS: KLONOPIN 0.5 MG PO (07:22)
[2024-10-05 07:30] VITALS: BP 126/82
[2024-10-05] MEDS: SYMBICORT 160/4.5 MCG INHALER 2 PUFF INH (08:00)
--- NOTE | 2024-10-05 09:36 | W.PN.UPDATE ---
Update Note
Progress Note Update
Nocturnal oximetry done overnight, showing total time with SpO2 <89% 1 hour and 25 minutes. This qualifies her for home oxygen. For the past several nights she has been using 2 L/min O2 with sleep which has been maintaining her saturations >88%.
Will need to have case management/social work set her up for home O2 at 2 L/min, and as stated on prior pulmonary notes we will see her in the office to discuss sleep disordered breathing and consider sleep study as an outpatient.
--- NOTE | 2024-10-05 09:56 | W.PN.HOSP.TC ---
Today's Communication/Plan
-
DC
Assessment / Plan
Assessment / Plan
Physical Exam
General: not in respiratory distress
HEENT: Anicteric and Oxygen (Nasal Cannula)
Respiratory: Clear and Other (Slightly tachypneic without use of accessory muscles)
Cardiac: S1/S2, and Murmur (II/ Systolic Murmur)
GI: Soft and Non Tender
Rectal: No rectal bleeding
Musculoskeletal: No Clubbing, No Cyanosis and No Edema
Skin: Warm and Dry
Neuro: Awake, Alert, Oriented and Nonfocal/grossly intact
Psych: Anxious , tearful
Acute hypoxemic respiratory failure secondary to extensive bilateral pulmonary emboli with right heart strain
Hypoxia detected while sleeping, ordered nocturnal O2
No hypoxia, normal ambulatory SaO2
S/p CDT lysis with interventional radiology
10/01 repeat angiogram completed with improvement in clot burden
10/01 CDT sheath was removed
s/p IV heparin drip and changed to Eliquis loading dose. Counseled about potential side effects of systemic anticoagulation, she verbalized understanding.
Appreciate IR, Pulm and Cardiology doctors help
Nonischemic myocardial injury secondary to pulmonary embolism
No chest pain
Cardiology followed
Right heart strain
Confirmed on 2D echocardiogram
Cardiology following recommend repeat 2D ultrasound in 3 months to assess resolution
Alcohol use disorder
NO DT
Lucid, AAOX3, no tremor.
Ativan, thiamine folate MSAS
Generalized Anxiety Disorder / Panic Disorder
Patient reports feeling anxious despite home medications. Her psychiatrist retired and has not followed with specialist. She is on twice a day Adderall, nighttime of( bupropion,sertraline and trazodone), she also uses Klonopin 1-2 3 times a day
as needed and uses alcohol to help with anxiety
Seen by psychiatry for help to adjust her medication and treat her anxiety, reduced Adderall to once a day
Hyperlipidemia
Continue Crestor
# Mild acute blood loss anemia, dilutional
Recheck hemoglobin seems stable.
#Elevated liver enzyme, no GI symptoms, resolved.
Total discharge time spent to see the patient, examine the patient, review data and lab results, discuss discharge plan with patient and nursing staff around 65 minutes
Anticipated Discharge: Today
Subjective/Interval History
-
Date of Service: October 05, 2024
No sob
No chest pain
No cough
Wants to go home
Objective Data
-
Vital Signs:
Vital Signs
Temp Pulse Resp BP Pulse Ox
99.1 F 74 16 126/82 94
10/05/24 07:30 10/05/24 08:04 10/05/24 08:04 10/05/24 07:30 10/05/24 07:30
I&O
10/04/24 10/05/24 10/06/24
06:59 06:59 06:59
Intake Total 722 / 722 480 / 480
Balance 722 / 722 480 / 480
--- NOTE | 2024-10-05 10:55 | VNURNOTE ---
[facility] liaison rec'ed update on new home nocturnal 02. Rx, clinicals faxed to Ivette at [facility]. She confirmed equip can be delivered to patient's house today. Spoke with patient at bedside, she is agreeable to new home 02. Liaison provided pt with
[facility] contact number. Instructed her to call DME co when leaving hospital. Patient verbalized understanding.
[2024-10-05 11:10] VITALS: BP 151/86
--- NOTE | 2024-10-05 11:58 | CM ---
CM reviewed chart, patient for discharge today, spouse to provide transportation home. CM will be followed by [facility], patient does qualify for nocturnal O2- will be delivered by [employer]. CM will continue to follow for all discharge planning needs.
Plan; home with [facility], Stacie for O2
Please fax discharge instructions to [facility] at [phone].
--- NOTE | 2024-10-05 13:26 | W.DCSUMMARY ---
Discharge Summary
Discharge Data
Date of Admission: 09/30/24
Date of Discharge: 10/05/24
-
Pending Results: No
Hospital Course
64 years old female admitted with history of shortness of breath and hypoxemia. Patient was found to have hypoxia and CAT scan of the chest showed bilateral pulmonary emboli. Finding of CAT scan was consistent with right heart strain. She had
elevated troponin. She was diagnosed to have submassive pulmonary emboli. Interventional radiology was consulted and she had catheter directed thrombolysis with successful outcome. She was monitored in intensive care unit. Patient has history of
COPD. She has history of daily alcohol intake/alcohol use disorder. She was also monitored for alcohol withdrawal symptoms. Patient was followed by filter operator and insurance billing clerk. Echocardiogram showed normal left ventricular ejection fraction of
60 to 65% with right heart strain/dilation and moderate tricuspid regurgitation. Patient did not need constant oxygen supplementation. She was noted to have nocturnal hypoxia which could be undiagnosed obstructive sleep apnea. She was given home
oxygen for nighttime. Patient was advised to follow-up with pulmonary doctor for sleep study. Patient did not have alcohol withdrawal symptoms. She was noticed to be on multiple depression/anxiety medications. Psychiatrist was consulted.
Psychiatrist recommended to decrease dose of Adderall to once a day from twice a day. Patient was counseled at length to avoid alcohol use, she verbalized understanding. Patient remained hemodynamically stable was discharged home in stable
condition. She was discharged on Eliquis. Potential side effects of Eliquis were discussed with patient and she verbalized understanding.
Discharge Plan
-
Patient Disposition: Home with Home Care
Discharge Diagnosis/Procedures: -Acute hypoxic respiratory failure, resolving, will need oxygen at night.
Submassive saddle pulmonary embolism with high risk features status post catheter directed lysis 09/30, now on Eliquis:
( Take 10 mg twice a day through 10/10 then 5 mg twice a day after that ) Eliquis is a blood thinner with risk of bleeding.
Y-ou are seen by pulmonary/filter operator and insurance billing clerk.
Echocardiogram showed LVEF 60 to 65%, mildly enlarged right ventricle with reduced systolic function/dilated right atrium/moderate tricuspid regurgitation.
- Alcohol use disorder. Avoid alcohol intake.
- You are seen by psychiatrist. Reduce dose of Adderall, follow-up with psychiatry as outpatient.
Diet: As tolerated
Referrals:
Cm Rodgers MD [Active] - in four to six weeks
(PFTs on day of office visit
Discuss sleep study due to hypoxia during sleep)
Lalit Zavala MD [Active] - 12/20/24 8:40 am (You have a follow up visit with Dr. Zavala in 3 months to reassess and schedule follow up echo. Please call the office with questions. )
Ashley Millan DO [Family Provider] - in one to two weeks
Prescriptions:
New
Eliquis 5 mg tablet
5 mg PO BID Qty: 72 0RF
Rx Instructions:
Take 10 mg twice a day through 10/10 then 5 mg twice a day after that
thiamine HCl (vitamin B1) 100 mg tablet
50 mg PO DAILY Qty: 30 0RF
Continued
sertraline 50 mg Tablet
50 mg PO QPM
ipratropium-albuterol 0.5 mg-3 mg(2.5 mg base)/3 mL solution for nebulization
3 ml INHALATION Q4HPRN PRN (Reason: SOB/WHEEZING)
albuterol sulfate 90 mcg/actuation HFA aerosol inhaler
2 puff INHALATION R Q4HPRN PRN (Reason: sob/wheezing)
rosuvastatin 5 mg tablet
5 mg PO QPM
bupropion HCl 300 mg tablet extended release 24 hr
300 mg PO QPM
budesonide-formoterol [Symbicort] 160-4.5 mcg/actuation HFA aerosol inhaler
1 inh INHALATION R QPM
hydroxyzine HCl 25 mg tablet
25 - 50 mg PO TIDPRN PRN (Reason: anxiety)
Changed
trazodone 50 mg tablet
50 mg PO HS Qty: 0 0RF
dextroamphetamine-amphetamine 10 mg tablet
10 mg PO DAILY Qty: 0 0RF
Patient Comments:
09/30/24: Per PDMP, last filled 09/06/24 #60 for 30 days
clonazepam 0.5 mg tablet
0.5 mg PO BID Qty: 0 0RF
Patient Comments:
09/30/24: Per PDMP, last filled 09/06/24 #90 for 30 days
Discharge Orders:
Discharge Patient (As Directed); Ordered 10/05/24
Ordered By: Suzi Gomez
Discharge Date and Time
Discharge Date/Time: 10/05/24 11:24
Print Language: BELARUSIAN
== END 2024-10-05 11:24 | disposition home health service (06) | DRG 175 ==
LOC: 4 WEST ACU 13:31
PROVIDERS: Nurse Practitioner Primary Care; Physician Assistant Medical; Radiology Vascular & Interventional Radiology; ADMITTING PHYSICIAN Internal Medicine; ATTENDING PHYSICIAN Internal Medicine; CONSULT PHYSICIAN Internal Medicine; CONSULT PHYSICIAN Psychiatry & Neurology Psychiatry; EMERGENCY PHYSICIAN Emergency Medicine; FAMILY PHYSICIAN Internal Medicine; OTHER PHYSICIAN Internal Medicine Interventional Cardiology
PROC: 4A033B3 Measurement of Arterial Pressure, Pulmonary, Percutaneous Approach (ICD-10-PCS; 2024-09-30)
PROC: B31T1ZZ Fluoroscopy of Left Pulmonary Artery using Low Osmolar Contrast (ICD-10-PCS; 2024-09-30)
PROC: 3E06317 Introduction of Other Thrombolytic into Central Artery, Percutaneous Approach (ICD-10-PCS; 2024-09-30)
PROC: B31S1ZZ Fluoroscopy of Right Pulmonary Artery using Low Osmolar Contrast (ICD-10-PCS; 2024-09-30)
DX: I26.02 Saddle embolus of pulmonary artery with acute cor pulmonale (principal); J96.01 Acute respiratory failure with hypoxia; I5A Non-ischemic myocardial injury (non-traumatic); D62 Acute posthemorrhagic anemia; J44.9 Chronic obstructive pulmonary disease, unspecified; F41.0 Panic disorder [episodic paroxysmal anxiety]; F32.A Depression, unspecified; F41.1 Generalized anxiety disorder; I07.1 Rheumatic tricuspid insufficiency; F10.90 Alcohol use, unspecified, uncomplicated; Z96.651 Presence of right artificial knee joint; Z87.891 Personal history of nicotine dependence; E78.00 Pure hypercholesterolemia, unspecified; F90.9 Attention-deficit hyperactivity disorder, unspecified type; I10 Essential (primary) hypertension; Z79.51 Long term (current) use of inhaled steroids; Z79.899 Other long term (current) drug therapy
CPT/HCPCS: 36015; 37211; 37214; 70450; 71046; 71275; 75743; 76937; 80048; 80053; 82962; 83036; 83735; 83880; 84484; 85018; 85025; 85027; 85384; 85610; 85730; 87070; 93005; 93306; 93970; 94640; 94762; 96365; 96366; 97162; 97167; 99152; 99153; 99291; C1769; C1887; J2997; Q9967

== ENCOUNTER → 2024-12-15 12:05 | Outpatient (REF) | payer OTHER, SELFPAY ==
[2024-12-18 07:17] LABS: Cardiolipin IgA Antibody <10 APL (<=11); Cardiolipin IgM Antibody <10 MPL (<=12); Cardiolipin Igg Antibody <10 GPL (<=14)
== END ==
LOC: HWLAB 12:05
PROVIDERS: ATTENDING PHYSICIAN Internal Medicine Hematology & Oncology; FAMILY PHYSICIAN Internal Medicine
DX: I26.99 Other pulmonary embolism without acute cor pulmonale (principal)
CPT/HCPCS: 36415; 81240; 81241; 86147

== ENCOUNTER 2025-01-08 17:33 | Emergency (ER) | payer OTHER, SELFPAY ==
[2025-01-08 18:19] LABS: Hematocrit 35.9 % (37.0-47.0); Hemoglobin 12.1 g/dL (12.0-16.0); Mean Corp Hgb Conc. 33.7 g/dL (33.0-37.0); Mean Corpuscular Volume 87.6 fL (81.0-99.0); Nucleated Red Blood Cells % 0 %; Platelet Count 213 10^3/uL (130-400); Red Cell Dist. Width 12.7 % (11.5-14.5)
[2025-01-08 18:40] LABS: ALT (SGPT) 14 U/L (0-35); AST (SGOT) 20 U/L (14-36); Albumin 4.5 g/dl (3.5-5.0); Alkaline Phosphatase 70 U/L (38-126); Blood Urea Nitrogen 23 mg/dl (7-17); Calcium 10.1 mg/dl (8.4-10.2); Carbon Dioxide 30 mmol/L (22-30); Chloride 105 mmol/L (98-107); Glucose 87 mg/dl (70-99); Potassium 4.6 mmol/L (3.5-5.1); Sodium 139 mmol/L (135-145); Total Protein 7.5 g/dl (6.3-8.2); eGFR > 60.00
--- NOTE | 2025-01-08 19:23 | ED.GENMED ---
History of Present Illness
General
Chief Complaint: Breathing Problem
Source: patient
Exam Limitations: none
Time Seen by Provider: 01/08/25 19:14
History of Present Illness
History of Present Illness:
64 year old female presents with worsening mid back pain after falling 1 week ago. She also notes shortness of breath. She is on Eliquis but did not hit her head. She denies headache. No abdominal pain. The pain is across the mid back. No
hemoptysis. No other complaint.
Past History
Past History
ED Past Medical History: HTN, Psychiatric (Anxiety, ADHD) and Other (Anxiety panic disorder ); Negative Arrthythmia, CAD or Fibromyalgia
ED Past Surgical History: Appendectomy, Cholecystectomy and
Social History
Tobacco: Non-smoker
Alcohol: Occasional
Drug: None
Personal:
Living: with family
Employment: Employed
Family History
Family History: Other (Nonsig.)
Phy Exam
Physical Exam
Physical Exam:
General: Well-appearing female no acute respiratory distress HEENT: Normocephalic atraumatic
Heart: Regular rate and rhythm
Lungs: Breath sounds heard all sharma
Musculoskeletal exam: Mild diffuse tenderness about the mid back bilaterally
Extremities: No sign of
Scores
Heart Failure Risk
Heart Failure Risk Score: Not Applicable
Course
Orders/Labs/Results
Orders:
Orders
01/08/25 17:48
EKG [Electrocardiogram (*1)] Urgent
Reason for Study: Shortness of Breath
CR Chest - 2 Views Urgent
Comment:
Reason For Exam: sob
01/08/25 17:49
EKG- Treatment ONCE
01/08/25 18:12
Complete Blood Count/With Diff Urgent
Comprehensive Metabolic Panel Urgent
Abnormal Lab Results
01/08/25
18:12
RBC 4.10 L 10^6/uL
(4.20-5.40)
Hct 35.9 L %
(37.0-47.0)
BUN 23 H mg/dl
(7-17)
01/08/25 18:12
01/08/25 18:12
Vital Signs
Initial and Last Documented VS:
Initial Vital Signs
Temp Pulse Resp Pulse Ox
98.4 F 69 18 98
01/08/25 17:46 01/08/25 17:46 01/08/25 17:46 01/08/25 17:46
Last Documented Vital Signs
Temp Pulse Resp BP Pulse Ox
98.4 F 69 16 152/95 99
01/08/25 17:46 01/08/25 19:48 01/08/25 19:48 01/08/25 19:48 01/08/25 19:48
MDM/Problems Addressed
Differential Diagnosis Includes:
Mid back pain after a fall consider contusion versus compression fracture versus pneumothorax
X-ray of the chest pending
*Pulse Oximetry
SaO2: 98
Oxygen Mode of Delivery: Room air
Patient hypoxic: no
*Critical Care Note
Total Time (30-74mins, 75-104mins- exclusive of procedures): Not Applicable
Update Note
Update Note:
X-ray shows chronic superior endplate deformities of T3 and T4 but no acute traumatic finding otherwise. Suspect thoracic strain or contusion. Recommended continued supportive care with warm compresses and Tylenol as well as Lidoderm patches.
Stable for discharge
ED Attending Note
-
Portions of this chart may have been created with voice recognition software.� Occasional wrong word or��sound alike� substitutions may have occurred due to the inherent limitations of voice recognition software.
Discharge Plan
Departure
Patient Disposition: Home (Routine Discharge)
Date of Disposition: 01/08/25
Time of Disposition: 20:21
Patient with high blood pressure during this ER visit?: No
Discharge Problem:
Contusion
Instructions: Contusion
Prescriptions:
No Action
sertraline 50 mg Tablet
50 mg PO QPM
ipratropium-albuterol 0.5 mg-3 mg(2.5 mg base)/3 mL solution for nebulization
3 ml INHALATION Q4HPRN PRN (Reason: SOB/WHEEZING)
albuterol sulfate 90 mcg/actuation HFA aerosol inhaler
2 puff INHALATION R Q4HPRN PRN (Reason: sob/wheezing)
rosuvastatin 5 mg tablet
5 mg PO QPM
bupropion HCl 300 mg tablet extended release 24 hr
300 mg PO QPM
budesonide-formoterol [Symbicort] 160-4.5 mcg/actuation HFA aerosol inhaler
1 inh INHALATION R QPM
hydroxyzine HCl 25 mg tablet
25 - 50 mg PO TIDPRN PRN (Reason: anxiety)
Eliquis 5 mg tablet
5 mg PO BID Qty: 72 0RF
Rx Instructions:
Take 10 mg twice a day through 10/10 then 5 mg twice a day after that
trazodone 50 mg tablet
50 mg PO HS Qty: 0 0RF
dextroamphetamine-amphetamine 10 mg tablet
10 mg PO DAILY Qty: 0 0RF
Patient Comments:
09/30/24: Per PDMP, last filled 09/06/24 #60 for 30 days
clonazepam 0.5 mg tablet
0.5 mg PO BID Qty: 0 0RF
Patient Comments:
09/30/24: Per PDMP, last filled 09/06/24 #90 for 30 days
thiamine HCl (vitamin B1) 100 mg tablet
50 mg PO DAILY Qty: 30 0RF
Referrals:
Ashley Millan, [Family Provider, Family Practice]
Activity Restrictions/Additional Instructions:
Continue with Tylenol or warm compresses to the area. You may try Lidoderm patches. Return if worse otherwise follow-up with your doctor
Interventions
Interventions:
*Risk Screen - Suicide Last Done: 01/08/25 17:46
*General Assessment Last Done: 01/08/25 17:46
*Neglect/Abuse Screening Last Done: 01/08/25 17:46
*ED- Fall Risk Assessment Last Done: 01/08/25 17:46
*ED COVID-19 Vaccine History Last Done: 01/08/25 17:46
ED- Cardiac Assessment Last Done: 01/08/25 19:46
ED- Pulmonary Assessment Last Done: 01/08/25 19:46
Discharge Date and Time
Print Language: SYRIAC
[2025-01-08 19:46] VITALS: BMI 31.8
[2025-01-08 19:48] VITALS: BP 152/95
[2025-01-08 20:01] VITALS: BP 147/99
== END 2025-01-08 20:34 | disposition home or self-care (01) ==
LOC: EMR 17:33
PROVIDERS: Emergency Medicine; EMERGENCY PHYSICIAN Emergency Medicine; FAMILY PHYSICIAN Internal Medicine
DX: S20.224A Contusion of middle back wall of thorax, initial encounter (principal); W19.XXXA Unspecified fall, initial encounter; I10 Essential (primary) hypertension; Z79.01 Long term (current) use of anticoagulants; Z90.49 Acquired absence of other specified parts of digestive tract
CPT/HCPCS: 99284; 71046; 80053; 85025; 93005

== ENCOUNTER 2025-02-01 15:32 | Emergency (ER) | payer OTHER, SELFPAY ==
[2025-02-01 15:43] VITALS: BP 112/68
[2025-02-01 16:25] LABS: Hematocrit 39.3 % (37.0-47.0); Hemoglobin 13.1 g/dL (12.0-16.0); Mean Corp Hgb Conc. 33.3 g/dL (33.0-37.0); Mean Corpuscular Volume 87.1 fL (81.0-99.0); Nucleated Red Blood Cells % 0 %; Platelet Count 253 10^3/uL (130-400); Red Cell Dist. Width 12.5 % (11.5-14.5)
[2025-02-01 16:43] LABS: ALT (SGPT) 18 U/L (0-35); AST (SGOT) 21 U/L (14-36); Albumin 4.9 g/dl (3.5-5.0); Alkaline Phosphatase 63 U/L (38-126); Blood Urea Nitrogen 22 mg/dl (7-17); Calcium 10.6 mg/dl (8.4-10.2); Carbon Dioxide 24 mmol/L (22-30); Chloride 105 mmol/L (98-107); Glucose 79 mg/dl (70-99); Potassium 4.9 mmol/L (3.5-5.1); Sodium 141 mmol/L (135-145); Total Protein 7.7 g/dl (6.3-8.2); eGFR 55.42
[2025-02-01 16:55] LABS: Troponin I < 0.012 ng/ml
[2025-02-01 19:54] VITALS: BP 127/82
[2025-02-01] MEDS: KLONOPIN 0.5 MG PO (19:54)
[2025-02-01 20:00] VITALS: BP 121/80
[2025-02-01 21:00] VITALS: BP 110/77
--- NOTE | 2025-02-01 21:14 | ED.GENMED ---
History of Present Illness
General
Chief Complaint: Anxiety
Source: patient
Exam Limitations: none
Time Seen by Provider: 02/01/25 19:39
Nursing documentation reviewed up to this point in time: agreed with
History of Present Illness
History of Present Illness:
Note:
CHIEF COMPLAINT(S)
Anxiety and shortness of breath.
HISTORY OF PRESENT ILLNESS
The patient is a 64-year-old female presenting with symptoms of anxiety and shortness of breath. She reports feeling panicky and anxious, consistent with her diagnosis of a panic attack. The patient mentioned not taking her usual dose of clonazepam
(0.5 mg) today, which she suspects has contributed to her current symptoms. She has an appointment scheduled with her psychiatrist for the following day. The patients shortness of breath is described as persistent, though less severe compared to the
previous day. She articulates a feeling of restlessness, stating, 'I cant sit down even, you know.'
PHYSICAL EXAM
General: Alert, no acute distress.
Psychiatric: Cooperative, appropriate mood & affect.
PLAN
Administer clonazepam 0.5 mg to address current anxiety and facilitate symptom resolution. Monitor the patients vital signs and ensure she is on the monitor for observation. Plan to revisit the patient in half an hour to evaluate the effect of
medication and reassess symptoms.
DIFFERENTIAL DIAGNOSIS
The Differential Diagnosis includes, in no particular order and is not limited to:
1. Panic disorder
2. Generalized anxiety disorder
3. Chronic obstructive pulmonary disease (due to persistent shortness of breath)
4. Asthma
5. Heart failure
6. Pulmonary embolism
7. Myocardial infarction
8. Hyperthyroidism
9. Infection-related respiratory issues, e.g., pneumonia
10. Medication side effects or withdrawal
Disposition:
SUMMARY OF ENCOUNTER
The patient is a 64-year-old female with a history of panic attacks who presented with anxiety and shortness of breath, characteristic of a panic attack. She reported not taking her usual medication, clonazepam 0.5 mg, which likely contributed to
her symptoms. After administration of clonazepam 0.5 mg, her symptoms resolved. The patient was observed for over an hour in the emergency department to ensure symptom resolution.
DISPOSITION
Discharge.
ASSESSMENT
Panic attack secondary to missed dose of clonazepam.
EMERGENCY TREATMENTS ADMINISTERED
Clonazepam 0.5 mg.
PLAN
Discharge patient home with follow-up appointment with her psychiatrist scheduled for the following day.
PATIENT EDUCATION AND COUNSELING
The patient was counseled on the importance of medication adherence to prevent future panic attacks.
FOLLOW-UP INSTRUCTIONS
The patient is instructed to follow up with her psychiatrist tomorrow as planned.
MEDICATION RECONCILIATION
Administered during visit: Clonazepam 0.5 mg.
MEDICAL DECISION MAKING
-Complexity of Data Reviewed: Chronic conditions affecting care: panic disorder. Possible differential diagnoses include panic disorder, generalized anxiety disorder, COPD, asthma, heart failure, pulmonary embolism, myocardial infarction,
hyperthyroidism, infection-related respiratory issues (e.g., pneumonia), or medication withdrawal.
-Data:
Category 1
No external records reviewed.
Category 2
Not applicable.
Category 3
No discussion with other specialists.
-Risk:
Prescription drug management with clonazepam.
Diagnosis:
- Panic attack - ICD-10 Code: F41.0
Past History
Past History
ED Past Medical History: HTN, Psychiatric (Anxiety, ADHD) and Other (Anxiety panic disorder ); Negative Arrthythmia, CAD or Fibromyalgia
ED Past Surgical History: Appendectomy, Cholecystectomy and
Social History
Tobacco: Non-smoker
Alcohol: Occasional
Drug: None
Personal:
Living: with family
Employment: Employed
Family History
Family History: Other (Nonsig.)
Review of Systems
Review of Systems
Allergies reviewed?: Yes
All Other Systems: ROS reviewed and negative except as documented in HPI and ROS
Psychiatric: Reports anxiety
Phy Exam
General Physical Exam
General Presentation: well appearing and mild distress
General Skin: warm and dry
General Habitus: normal
General Mental: alert
General Hydration: appears well hydrated
ENT Exam
ENT Exam: EOMI, pharynx normal, neck supple and normocephalic
Eye Exam
Eye Exam: PERRL, cornea clear and conjunctiva normal
Cardiovascular Exam
Cardiovascular Exam: regular rate/rhythm, no edema, no murmur and normal peripheral pulses
Pulmonary Exam
Pulmonary Exam: lungs clear, no respiratory distress, no rales, no crackles, no rhonchi, no stridor, no wheezing and no cough
Gastrointestinal Exam
Gastrointestinal Exam: normal bowel sounds, non tender, soft, no organomegaly, no pulsatile mass and non distended
Neurological Exam
Neurological Exam: alert, oriented x3, no motor deficits and speech normal
Musculoskeletal Exam
Musculoskeletal Exam: full ROM and no edema
Skin Exam
Skin Exam: normal color, warm/dry, no rash and no petechia
Psychiatric Exam
Psychiatric Exam: anxious
Course
Orders/Labs/Results
Orders:
Orders
02/01/25 15:51
Electrocardiogram (*1) Urgent
Reason for Study: Chest Pain
EKG- Treatment ONCE
02/01/25 16:09
Complete Blood Count/With Diff Urgent
Comprehensive Metabolic Panel Urgent
Troponin I Urgent
02/01/25 19:44
Clonazepam [Klonopin] 0.5 mg PO NOW STA
Abnormal Lab Results
02/01/25
16:09
MPV 10.6 H fL
(7.4-10.4)
BUN 22 H mg/dl
(7-17)
Creatinine 1.1 H mg/dL
(0.6-1.0)
Calcium 10.6 H mg/dl
(8.4-10.2)
02/01/25 16:09
02/01/25 16:09
Vital Signs
Initial and Last Documented VS:
Initial Vital Signs
Temp Pulse Resp BP Pulse Ox
98.2 F 82 16 112/68 98
02/01/25 15:43 02/01/25 15:43 02/01/25 15:43 02/01/25 15:43 02/01/25 15:43
Last Documented Vital Signs
Temp Pulse Resp BP Pulse Ox
98.2 F 76 15 110/77 98
02/01/25 15:43 02/01/25 21:00 02/01/25 21:00 02/01/25 21:00 02/01/25 21:14
*Pulse Oximetry
SaO2: 98
Oxygen Mode of Delivery: Room air
Patient hypoxic: no
*Critical Care Note
Total Time (30-74mins, 75-104mins- exclusive of procedures): Not Applicable
ED Attending Note
-
Portions of this chart may have been created with voice recognition software.� Occasional wrong word or��sound alike� substitutions may have occurred due to the inherent limitations of voice recognition software.
Discharge Plan
Departure
Patient Disposition: Home (Routine Discharge)
Date of Disposition: 02/01/25
Time of Disposition: 21:17
Patient with high blood pressure during this ER visit?: Yes
Discharge Problem:
Anxiety
Instructions: Anxiety, Adult (DC), BLOOD PRESSURE
Prescriptions:
No Action
sertraline 50 mg Tablet
50 mg PO QPM
ipratropium-albuterol 0.5 mg-3 mg(2.5 mg base)/3 mL solution for nebulization
3 ml INHALATION Q4HPRN PRN (Reason: SOB/WHEEZING)
albuterol sulfate 90 mcg/actuation HFA aerosol inhaler
2 puff INHALATION R Q4HPRN PRN (Reason: sob/wheezing)
rosuvastatin 5 mg tablet
5 mg PO QPM
bupropion HCl 300 mg tablet extended release 24 hr
300 mg PO QPM
budesonide-formoterol [Symbicort] 160-4.5 mcg/actuation HFA aerosol inhaler
1 inh INHALATION R QPM
hydroxyzine HCl 25 mg tablet
25 - 50 mg PO TIDPRN PRN (Reason: anxiety)
Eliquis 5 mg tablet
5 mg PO BID Qty: 72 0RF
Rx Instructions:
Take 10 mg twice a day through 10/10 then 5 mg twice a day after that
trazodone 50 mg tablet
50 mg PO HS Qty: 0 0RF
dextroamphetamine-amphetamine 10 mg tablet
10 mg PO DAILY Qty: 0 0RF
Patient Comments:
09/30/24: Per PDMP, last filled 09/06/24 #60 for 30 days
clonazepam 0.5 mg tablet
0.5 mg PO BID Qty: 0 0RF
Patient Comments:
09/30/24: Per PDMP, last filled 09/06/24 #90 for 30 days
thiamine HCl (vitamin B1) 100 mg tablet
50 mg PO DAILY Qty: 30 0RF
Referrals:
Ashley Millan DO [Family Provider, Family Practice]
Activity Restrictions/Additional Instructions:
Thank You for choosing [facility].
It was a pleasure meeting you and taking part in your care. We hope for your continued healing and wellness.
Please read discharge instructions in their entirety. However, they are for general education and may not describe your exact diagnosis at discharge. Information on your ER visit and medical conditions were discussed with you along with appropriate
follow up information...
If indicated, please take your medications as instructed and indicated on discharge paperwork.
Please schedule a follow up appointment as directed. Call to schedule an appointment
Please return to the emergency department with ANY change in, persisting, or worsening of symptoms. If any of your symptoms do not improve, or persist, or become more severe within 6-12 hours, please return to the emergency department for further
care.
Please return to the emergency department if you develop a headache, neck pain/stiffness, fever greater than 100.4F, chest pain, shortness of breath, persistent nausea, vomiting, slurred speech, difficulty walking, numbness/tingling, weakness, signs
of infection or any other symptoms that are worrisome to you.
If you have any questions or concerns please do not hesitate to call the Hospital at
Interventions
Interventions:
*Risk Screen - Suicide Last Done: 02/01/25 15:43
*ED- Fall Risk Assessment Last Done: 02/01/25 15:43
ED-Psychological Assessment Last Done: 02/01/25 17:53
Discharge Date and Time
Print Language: ARMENIAN
== END 2025-02-01 21:20 | disposition home or self-care (01) ==
LOC: EMR 15:32
PROVIDERS: Emergency Medicine; EMERGENCY PHYSICIAN Student in an Organized Health Care Education/Training Program; FAMILY PHYSICIAN Internal Medicine
DX: R41.9 Unspecified symptoms and signs involving cognitive functions and awareness (principal); F90.9 Attention-deficit hyperactivity disorder, unspecified type; F41.0 Panic disorder [episodic paroxysmal anxiety]; I10 Essential (primary) hypertension
CPT/HCPCS: 99283; 80053; 84484; 85025; 93005

== ENCOUNTER → 2025-02-08 13:57 | Outpatient (REF) | payer OTHER, SELFPAY | LOC: HWWDC 13:57 | PROVIDERS: ATTENDING PHYSICIAN Internal Medicine | DX: Z12.31 Encounter for screening mammogram for malignant neoplasm of breast (principal) | CPT/HCPCS: 77063; 77067 ==

== ENCOUNTER → 2025-02-10 10:35 | Outpatient (REF) | payer OTHER, SELFPAY ==
[2025-02-10 12:28] LABS: Hematocrit 38.4 % (37.0-47.0); Hemoglobin 12.4 g/dL (12.0-16.0); Mean Corp Hgb Conc. 32.3 g/dL (33.0-37.0); Mean Corpuscular Volume 89.1 fL (81.0-99.0); Nucleated Red Blood Cells % 0 %; Platelet Count 219 10^3/uL (130-400); Red Cell Dist. Width 12.4 % (11.5-14.5)
[2025-02-10 14:08] LABS: Glycohemoglobin (HgbA1c) 5.3 % (4.0-5.6)
[2025-02-10 14:53] LABS: ALT (SGPT) 35 U/L (0-35); AST (SGOT) 63 U/L (14-36); Albumin 4.5 g/dl (3.5-5.0); Alkaline Phosphatase 71 U/L (38-126); Blood Urea Nitrogen 19 mg/dl (7-17); Calcium 9.8 mg/dl (8.4-10.2); Carbon Dioxide 31 mmol/L (22-30); Glucose 94 mg/dl (70-99); HDL Cholesterol 52 mg/dl; LDL Cholesterol, Calculated 102 mg/dl; Potassium 5.1 mmol/L (3.5-5.1); Sodium 140 mmol/L (135-145); Total Protein 6.9 g/dl (6.3-8.2); Very Low Density Lipoprotein 16 mg/dl (0-30); eGFR > 60.00
[2025-02-10 14:57] LABS: Chloride 105 mmol/L (98-107)
== END ==
LOC: HWLAB 10:35
PROVIDERS: ATTENDING PHYSICIAN Internal Medicine
DX: R06.02 Shortness of breath (principal); S16.1XXA Strain of muscle, fascia and tendon at neck level, initial encounter; M79.89 Other specified soft tissue disorders; Z12.31 Encounter for screening mammogram for malignant neoplasm of breast; I26.92 Saddle embolus of pulmonary artery without acute cor pulmonale; G47.34 Idiopathic sleep related nonobstructive alveolar hypoventilation; E78.2 Mixed hyperlipidemia; R73.01 Impaired fasting glucose; F41.1 Generalized anxiety disorder; I10 Essential (primary) hypertension; E66.09 Other obesity due to excess calories
CPT/HCPCS: 36415; 80053; 80061; 83036; 84443; 85025

== ENCOUNTER → 2025-02-24 13:00 | Outpatient (REF) | payer OTHER, SELFPAY | LOC: HWRAD 13:00 | PROVIDERS: ATTENDING PHYSICIAN Internal Medicine | DX: G89.29 Other chronic pain (principal); M54.6 Pain in thoracic spine | CPT/HCPCS: 72072 ==

== ENCOUNTER → 2025-02-27 15:05 | Outpatient (REF) | payer OTHER, SELFPAY | LOC: HWRCS 15:05 | PROVIDERS: ATTENDING PHYSICIAN Internal Medicine Cardiovascular Disease; FAMILY PHYSICIAN Internal Medicine | DX: I51.9 Heart disease, unspecified (principal) | CPT/HCPCS: 93306 ==